=== PATIENT | male | born 1960 | race Caucasian/White ===

== ENCOUNTER → 2018-03-18 09:26 | Outpatient (CLI) | payer BC, SELFPAY ==
[2018-03-18 12:00] LABS: Basophil# 0.01 X10^3/uL; Basophil% 0.2 % (0-1); Eosinophil# 0.04 X10^3/uL; Eosinophils% 0.7 % (0-5); Hematocrit 42.8 % (40-54); Hemoglobin 14.6 g/dl (13.0-16.5); Lymphocyte % 18.1 % (19-41); Mean Corp Hgb Conc 34.1 g/gl (32-36); Mean Corpuscular Hgb 30.2 pg (27.0-32.0); Mean Corpuscular Volume 88.4 fL (80-94); Monocyte# 0.45 X10^3/uL; Monocyte% 8.2 % (0-10); Neutrophil % 72.6 % (47-70); Platelet Count 476 K/mm3 (150-450); RBC Distribution Width CV 12.8 % (11.6-14.6); RBC Distribution Width SD 41.3 fl (35.1-43.9); Red Blood Count 4.84 M/mm3 (4.6-6.2); White Blood Count 5.5 K/mm3 (4.4-11.0)
[2018-03-18 12:09] LABS: POSITIVE COUNT NO; POSITIVE DIFFERENTIAL NO; POSITIVE MORPHOLOGY NO
[2018-03-18 12:15] LABS: ALB/GLOB Ratio 0.8 RATIO (0.9-2.4); AST(SGOT) 14 U/L (15-37); Alanine Aminotransfer ALT/SGPT 26 U/L (16-61); Albumin, Serum 3.6 g/dL (3.2-5.0); Alkaline Phosphatase 74 U/L (45-117); Anion Gap 11 (5-15); BUN 19 mg/dL (7-18); BUN/Creat Ratio 17.1 RATIO (10-20); Chloride 104 mmol/L (98-107); Creatinine, Serum 1.11 mg/dL (0.70-1.30); EST Glomerular Filtration Rate 73 mL/min (>60); Est Glom Filt Rate - Afr Amer 88 mL/min (>60); Globulin 4.3 g/dL (2.2-4.2); Glucose 103 mg/dL (74-106); Potassium 3.7 mmol/L (3.5-5.1); Protein, Total 7.9 g/dL (6.4-8.2); Sodium Level 140 mmol/L (136-145)
[2018-03-18 12:55] LABS: HIV - WCH Non-Reactive (Nonreactive)
[2018-03-19 07:08] LABS: HEPATITIS B SURFACE AG Negative (Negative)
[2018-03-19 10:56] LABS: Hep B Surface Antibodies Non Reactive (.); Hep C Antibodies <0.1 s/co ratio (0.0-0.9); Hepatitis B Core Ab Total Negative (Negative)
== END ==
PROVIDERS: Family Provider Family Medicine; PCP Family Medicine; Referring Provider Physician Assistant; Visit Provider Physician Assistant
DX: L40.0 Psoriasis vulgaris (principal); L81.4 Other melanin hyperpigmentation; D22.5 Melanocytic nevi of trunk; L81.8 Other specified disorders of pigmentation; L72.0 Epidermal cyst; L71.8 Other rosacea; Z79.899 Other long term (current) drug therapy; Z71.89 Other specified counseling
CPT/HCPCS: 36415; 80053; 85025; 86703; 86704; 86706; 86803; 87340

== ENCOUNTER → 2019-03-13 09:29 | Outpatient (CLI) | payer BC, SELFPAY ==
[2014-11-29 20:31] VITALS: BMI 25.5
[2019-03-13 12:46] LABS: Absolute Lymphocyte Count 1.55 X10^3/uL (0.83-4.51); Absolute Neutrophil Count 4.6 X10^3/uL (2.0-7.7); Basophil# 0.06 X10^3/uL; Basophil% 0.9 % (0-1); Eosinophil# 0.08 X10^3/uL; Eosinophils% 1.1 % (0-5); Hematocrit 44.2 % (40-54); Hemoglobin 14.6 g/dL (13.0-16.5); Lymphocyte # 1.55 X10^3/ul (4.0); Lymphocyte % 22.2 % (19-41); Mean Corpuscular Volume 90.8 fL (80-94); Mean Platelet Vol. 9.5 fl (6.2-12.0); NRBC Flagged by Analyzer 0 % (0-5); Neutrophil # 4.55 X10^3/uL (2.7-7.7); Neutrophil % 65.2 % (47-70); Platelet Count 436 K/mm3 (150-450); RBC Distribution Width CV 12.2 % (11.6-14.6); RBC Distribution Width SD 40.7 fl (35.1-43.9); Red Blood Count 4.87 M/mm3 (4.6-6.2)
[2019-03-13 13:18] LABS: AST(SGOT) 16 U/L (15-37); Alanine Aminotransfer ALT/SGPT 25 U/L (16-61); Albumin, Serum 3.5 g/dL (3.2-5.0); Alkaline Phosphatase 84 U/L (45-117); Anion Gap 7 (5-15); BUN 12 mg/dL (7-18); BUN/Creat Ratio 12.6 RATIO (10-20); Bilirubin, Direct 0.11 mg/dL (0.00-0.30); Calcium,Total 8.8 mg/dL (8.5-10.1); Chloride 103 mmol/L (98-107); Cholesterol 188 mg/dL (200); Creatinine, Serum 0.95 mg/dL (0.70-1.30); EST Glomerular Filtration Rate 86 mL/min (>60); Est Glom Filt Rate - Afr Amer 105 mL/min (>60); Globulin 4.7 g/dL (2.2-4.2); Glucose 133 mg/dL (74-106); High Density Lipoprotein 50 mg/dL; Potassium 3.7 mmol/L (3.5-5.1); Protein, Total 8.2 g/dL (6.4-8.2); Sodium Level 138 mmol/L (136-145); Triglycerides 216 mg/dL; Very Low Density Lipoprotein 43 mg/dL (5-40)
[2019-03-13 14:06] LABS: Hepatitis B Surface Antibody Non-Reactive; Hepatitis B Surface Antigen Non-Reactive (Nonreactive); Hepatitis C Antibody Non-Reactive (Nonreactive)
[2019-03-16 03:08] LABS: QNTFERON TB Mitogen Value > 10.00 IU/mL (.); QNTFERON TB Nil Value 0.01 IU/mL (.); QNTFERON TB1+ Ag Value 0.03 IU/mL (.); QNTFERON TB2+ Ag Value 0.02 IU/mL (.)
[2019-03-17 10:37] LABS: Hepatitis B Core AB IgM Negative (Negative); QNTIFERON TB Positive Criteria Negative (Negative)
== END ==
PROVIDERS: Family Provider Family Medicine; PCP Family Medicine; Referring Provider Physician Assistant; Visit Provider Physician Assistant
DX: L40.0 Psoriasis vulgaris (principal); Z79.899 Other long term (current) drug therapy
CPT/HCPCS: 36415; 80048; 80061; 80076; 85025; 86480; 86705; 86706; 86803; 87340

== ENCOUNTER 2019-07-02 02:02 | Emergency (ER) | payer BC, SELFPAY ==
[2019-07-02 02:03] VITALS: BP 165/100; PULSE 88; RESP 17; TEMP 36.3; O2SAT 99; BMI 26.1
--- NOTE | 2019-07-02 02:16 | ED.VIS.GEN ---
History of Present Illness Chief Complaint: Dental Informant: Patient Narrative: Dated he is having left upper facial pain. He stated that he had 2 teeth pulled premolars approximately 2 weeks ago from his dentist. He has an appointment to see his dentist tomorrow for follow-up. He developed pain yesterday. He describes a throbbing pain. He was not given antibiotics postop. He is noticed no drainage from this area. He was not having pain up until yesterday. No injury to this area. Current severity is moderate. He is using Tylenol and ibuprofen. Minimal relief. Current severity is moderate. Worse by eating solids in this area. Past Medical History - Allergies and Home Meds Allergies/Adverse Reactions: Allergies prednisone Adverse Reaction (Verified 07/02/19 02:10) Chest tightness Primary Care Physician: John Jones MD [Primary Care Provider] - Prior records reviewed: Yes Past Medical History: - - Reviewed Surgical History: noncontributory Lives: With Family Smoking Status: Never smoker Alcohol: None Drugs: None Review of Systems General: Denies: Chills, Fever, Sweats Eyes: Denies: Visual changes - bilaterally, Diplopia ENT: Reports: - - See HPI. Denies: Rhinorrhea, Sore throat Cardiovascular: Denies: Chest pain, Palpitations Respiratory: Denies: Dyspnea, Cough, Dyspnea on exertion Gastrointestinal: Denies: Abdominal pain, Nausea, Vomiting, Diarrhea, Melena, Hematochezia Genitourinary: Denies: Dysuria, Hematuria, Frequency Musculoskeletal: Denies: Back pain, Extremity Pain Skin: Denies: Rash, Wounds Neurological: Denies: Headache, Weakness, Numbness Physical Exam Vital Signs/Narrative: Vital Signs Temp Pulse Resp BP Pulse Ox 07/02/19 02:03 97.4 F L 88 17 165/100 H 99 General: Well nourished, Well developed, No Acute Distress Head: Normocephalic, Atraumatic Eyes: Perrl, EOMI ENT: Moist mucous membranes, No rhinorrhea, - - Dental exam shows 2 premolars that were removed on the left side. The areas appear normal. There is no drainage. The gums appear normal. There is no dry socket. No significant tenderness to these areas. The rest of his dental exam shows chronic decay Neck: Supple, Nontender Cardiovascular: Regular rate, Regular rhythm, No murmurs Respiratory: No distress, CTA bilaterally, Chest nontender Abdomen: Soft, Nontender, Nondistended, Normal bowel sounds Back: Nontender, Normal Inspection Extremities: Nontender, No edema Skin: Normal color, No rash Neurological: Alert, Oriented x3, Cranial nerves II-XII grossly intact, Normal Strength, Normal Sensation Psychological: Normal affect, Normal Mood Diagnostic/Tx/Re-eval - Medical Decision Making At this time the patient may have a infection in the pocket. He will be given Augmentin. He was given 1 oxycodone here and will continue NSAIDs at home. He has a follow-up with his dentist tomorrow. I do not feel he needs a CT of his face. He is nontoxic. ED Disposition - Plan for ED Patient: Disposition: Home or Assisted Living Diagnosis: Postoperative pain Instructions: Dental Pain Prescriptions: Amox/Clavulanate Tablet [Augmentin Tablet] 875 mg PO Q12H #20 tab Prescription Printed Additional Instructions: Follow-up with your dentist tomorrow
[2019-07-02] MEDS: oxyCODONE 5 MG Tablet 10 MG PO (02:21)
[2019-07-02] MEDS: Amox/Clavulanate 875 MG Tablet PO (02:21)
== END 2019-07-02 02:57 | disposition home or self-care (01) ==
PROVIDERS: Emergency Provider Emergency Medicine; PCP Family Medicine
DX: K08.89 Other specified disorders of teeth and supporting structures (principal); G89.18 Other acute postprocedural pain
CPT/HCPCS: 99283

== ENCOUNTER 2019-07-31 15:50 | Inpatient (IN) | payer BC, SELFPAY ==
[2019-07-31] VITALS (16 sets, daily range): BP systolic 119–168; BP diastolic 61–115; PULSE 111–140; RESP 16–29; TEMP 36.4–39.6; O2SAT 91–99; BMI 26.4; BMI 24.7; BMI 24.8
--- NOTE | 2019-07-31 16:02 | EKG12_ITS ---
Test Reason : SOB Blood Pressure : / mmHG Vent. Rate : 130 BPM Atrial Rate : 130 BPM P-R Int : 140 ms QRS Dur : 090 ms QT Int : 294 ms P-R-T Axes : 024 028 046 degrees QTc Int : 432 ms Sinus tachycardia Otherwise normal ECG Confirmed by TONYA KRUEGER, LIT ([id number]), editor magazine PHILL TRUJILLO ([id number]) on 08/01/2019 1:10:57 PM Referred By: JOLENE Confirmed By:ALLIE CASTANEDA MD
--- NOTE | 2019-07-31 16:03 | ED.DCSUM_ITS ---
History of Present Illness Chief Complaint: Shortness of Breath Informant: Patient Onset: Days Context: Gradual Onset Current Severity: Moderate Maximum Severity: Moderate Narrative: Patient presents with shortness of breath, sore throat, mild cough. He states symptoms started 2 days ago primarily with sore throat. It is now moved into his chest. He does report some wheezing and mild cough. He feels it there is something stuck in his chest but is not been able to cough up any sputum. He has not noted fever. He denies history of lung problems. - Past Medical History (1) Psoriasis Status: Chronic Past Medical History - Allergies and Home Meds Allergies/Adverse Reactions: Allergies prednisone Adverse Reaction (Verified 07/31/19 15:52) Chest tightness Primary Care Physician: John Jones MD [Primary Care Provider] - Prior records reviewed: Yes Surgical History: noncontributory Lives: Spouse/ Significant Other Smoking Status: Former smoker Review of Systems General: Denies: Chills, Fever Eyes: Denies: Visual changes - bilaterally ENT: Reports: Sore throat. Denies: Bilateral ear pain Cardiovascular: Reports: Chest pain Respiratory: Reports: Dyspnea, Cough. Denies: Sputum Gastrointestinal: Denies: Abdominal pain, Nausea, Vomiting, Diarrhea Genitourinary: Denies: Dysuria Musculoskeletal: Denies: Swelling, Extremity Pain Skin: Denies: Rash Neurological: Denies: Headache Allergy: Denies: Uticaria Physical Exam Vital Signs/Narrative: Vital Signs Temp Pulse Resp BP Pulse Ox 07/31/19 15:50 97.5 F L 138 H 24 H 168/94 H 95 Inital Vital Signs reviewed: Yes General: Well nourished, Well developed Head: Normocephalic ENT: Moist mucous membranes, - - Mild posterior pharyngeal drainage. Uvula midline. Tolerating secretions well and has a strong voice. Neck: Supple Cardiovascular: Tachycardia Respiratory: No distress, - - Lung sounds diminished at the bilateral bases. Abdomen: Soft, Nontender Extremities: Nontender, No edema Skin: Normal color, No rash Neurological: Alert, Oriented x3 Psychological: Normal affect Diagnostic/Tx/Re-eval Impressions Chest X-Ray 07/31/19 16:10 IMPRESSION: No acute cardiopulmonary findings Electronically Signed: Kd Baca, at 16:45 EDT Tel , Service support , 07/31/19 16:10 Chest 1 View (Portable) [RAD] Stat 07/31/19 16:36 Mucosa - Nasopharyngeal Influenza Types A,B Direct FA ([facility]) - Final Laboratory Results 07/31/19 07/31/19 07/31/19 16:18 16:18 16:18 WBC 10.6 RBC 4.92 Hgb 14.9 Hct 44.5 MCV 90.4 MCH 30.3 MCHC 33.5 RDW Std Deviation 42.1 RDW Coeff of Jose 12.7 Plt Count 298 MPV 8.5 Immature Gran % (Auto) 0.300 Neut % (Auto) 88.6 H Lymph % (Auto) 6.9 L [place] % (Auto) 3.9 Eos % (Auto) 0.1 Baso % (Auto) 0.2 Absolute Neuts (auto) 9.4 H Absolute Lymphs (auto) 0.73 L Nucleated RBC % 0 D-Dimer Quant (PE/DVT) 0.31 Sodium 138 Potassium 3.6 Chloride 102 Carbon Dioxide 27.0 Anion Gap 9 BUN 13 Creatinine 1.02 Estim Creat Clear Calc 90.30 Est GFR (MDRD) Af Amer 97 Est GFR (MDRD) Non-Af 80 BUN/Creatinine Ratio 12.7 Glucose 113 H Lactic Acid Calcium 8.9 Troponin I < 0.015 07/31/19 16:18 WBC RBC Hgb Hct MCV MCH MCHC RDW Std Deviation RDW Coeff of Jose Plt Count MPV Immature Gran % (Auto) Neut % (Auto) Lymph % (Auto) [place] % (Auto) Eos % (Auto) Baso % (Auto) Absolute Neuts (auto) Absolute Lymphs (auto) Nucleated RBC % D-Dimer Quant (PE/DVT) Sodium Potassium Chloride Carbon Dioxide Anion Gap BUN Creatinine Estim Creat Clear Calc Est GFR (MDRD) Af Amer Est GFR (MDRD) Non-Af BUN/Creatinine Ratio Glucose Lactic Acid 2.1 H* Calcium Troponin I - EKG Initial EKG Interpretation: Sinus Tachycardia - Sinus tach at 130. No acute ischemia. - Medical Decision Making Patient was given a DuoNeb treatment on arrival. Patient's heart rate improved from 138 only to 128. On repeat evaluation he felt like he was breathing better. CBC and chemistry studies are unremarkable. Troponin and d-dimer are both negative. Patient did not feel that he got some improvement in his breathing with DuoNeb treatment. He was ordered additional albuterol treatments, however complained of headache and asked for some Tylenol before getting the breathing treatments. When the nurse went back to take Tylenol as well as a dose of doxycycline to him, she rechecked his temperature and was reading 103.3 TA. Blood cultures and lactic acid were obtained at that time. Lactic acid has returned to 2.1. Patient is already had a liter of IV fluid but remains tachycardic with heart rate in the 140s. Patient's face is red and flushed. Repeat TA temperature is still elevated around 102, however oral temperature is not elevated when taken at the same time. Patient is on immunosuppression secondary to his psoriasis. I still have concern with the patient being persistently tachycardic. I recommended admission. Blood cultures should have a prelim answer tomorrow. Respiratory viral panel was also sent. ED Disposition - Plan for ED Patient: Disposition: Acute Care Hospital [facility] Diagnosis: Shortness of breath, Tachycardia Referrals: John Jones MD [Primary Care Provider] -
--- NOTE | 2019-07-31 16:10 | RAD_ITS ---
STUDY: X-RAY CHEST REASON FOR EXAM: Male, 58 years old. LUNG PAIN, SOB, SORE THROAT, COUGH SINCE ROMERO. UNABLE TO TAKE DEEP BREATH TECHNIQUE: Single frontal view of the chest. COMPARISON: 03/21/16 FINDINGS: Cardiac silhouette unremarkable. Pulmonary vascularity unremarkable. Aorta unremarkable. No focal airspace opacities. No pleural effusions. Upper abdomen unremarkable. Osseous structures intact. No pneumothorax. RAD/Chest 1 View (Portable) IMPRESSION: No acute cardiopulmonary findings Electronically Signed: Kd Baca, at 16:45 EDT Tel , Service support ,
[2019-07-31] MEDS: Ipratropium/Albuterol Sulfate 3 ML AMPUL.NEB INHALATION (16:24)
[2019-07-31] MEDS: 0.9% Normal Saline 1,000 ML 150 ML IV (16:25)
[2019-07-31 16:29] LABS: Absolute Lymphocyte Count 0.73 X10^3/uL (0.83-4.51); Absolute Neutrophil Count 9.4 X10^3/uL (2.0-7.7); Basophil# 0.02 X10^3/uL; Basophil% 0.2 % (0-1); Eosinophil# 0.01 X10^3/uL; Eosinophils% 0.1 % (0-5); Hematocrit 44.5 % (40-54); Hemoglobin 14.9 g/dL (13.0-16.5); Lymphocyte # 0.73 X10^3/ul (4.0); Lymphocyte % 6.9 % (19-41); Mean Corp Hgb Conc 33.5 g/dL (32-36); Mean Corpuscular Hgb 30.3 pg (27.0-32.0); Mean Corpuscular Volume 90.4 fL (80-94); Mean Platelet Vol. 8.5 fl (6.2-12.0); Monocyte# 0.41 X10^3/uL; Monocyte% 3.9 % (0-10); NRBC Flagged by Analyzer 0 % (0-5); Neutrophil # 9.44 X10^3/uL (2.7-7.7); Neutrophil % 88.6 % (47-70); Platelet Count 298 K/mm3 (150-450); RBC Distribution Width CV 12.7 % (11.6-14.6); RBC Distribution Width SD 42.1 fl (35.1-43.9); Red Blood Count 4.92 M/mm3 (4.6-6.2); White Blood Count 10.6 K/mm3 (4.4-11.0)
[2019-07-31 16:41] LABS: D-Dimer Quantitative (DVT/PE) 0.31 FEU/ug/m (0.27-0.49)
[2019-07-31 16:49] LABS: Anion Gap 9 (5-15); BUN 13 mg/dL (7-18); BUN/Creat Ratio 12.7 RATIO (10-20); Calcium,Total 8.9 mg/dL (8.5-10.1); Chloride 102 mmol/L (98-107); Creatinine, Serum 1.02 mg/dL (0.70-1.30); EST Glomerular Filtration Rate 80 mL/min (>60); Est Glom Filt Rate - Afr Amer 97 mL/min (>60); Glucose 113 mg/dL (74-106); Potassium 3.6 mmol/L (3.5-5.1); Sodium Level 138 mmol/L (136-145)
[2019-07-31] MEDS: Doxycycline 100 MG CAPSULE PO (18:12)
[2019-07-31] MEDS: Acetaminophen 500 MG Tablet 1000 MG PO ×2 (18:12→20:12)
[2019-07-31] MEDS: Albuterol 2.5 MG/3 ML VIAL.NEB. INHALATION (18:32)
[2019-07-31 19:46] LABS: Lactic Acid 2.1 mmol/L (0.4-1.9)
--- NOTE | 2019-07-31 19:47 | PCM.HP.STD ---
History of Present Illness Date of Admission: 07/31/19 Chief Complaint: Dyspnea, cough, fatigue, malaise Admission Diagnoses: Acute Severe Sepsis Acute Viral Syndrome suspected, unclear type Former Tobacco use Psoriatic Arthritis on immunosuppressive therapy HTN GERD The patient is a 58 y/o M w/ PMHx: Former Tobacco use, HTN, GERD, Psoriatic Arthritis on immunosuppressive therapy who presents to the [facility] ED on 07/31/19 with history of sore throat with chest congestion and wheezing in addition to mild cough, fatigue, malaise and dyspnea, worse with exertion starting this past Sunday, not improving and progressively worsening prompting eventual ED presentation with significant fever noted upon ED presentation. In the ED patient ill-appearing and diaphoretic. Patient does note that he was recently at a [employer] which is where he works on 07/20/2019 with nearly [phone] people present at that time. He denies any other recent travel outside of the community. Work-up in the ED included T 103.3, heart rate 130, BP 142/94, respiratory rate 20, 95% on room air, CBC with WC 10.6, hemoglobin 14.9, platelet 298 with left shift, d-dimer 0.31, BMP with glucose 113, lactic acid 2.1, troponin less than 0.015, rapid influenza negative, blood culture x2 pending per ED, respiratory viral panel pending per ED, chest x-ray with no acute cardiopulmonary findings. In the ED patient administered Tylenol, normal saline, albuterol and DuoNeb therapies as well as oral doxycycline x1. Given patient immunosuppressed status, acute presentation and recent participation in a large [employer] discussed case with infectious disease who agreed that if respiratory viral panel is negative would plan Kovic 19 testing. Discussed this patient with infection control as well as ED staff. Patient's is also present and discussed with the ED staff that she needed to be informed to wear a mask and once patient transitions to the ICU she will be requested to transition to home for self quarantine pending respiratory viral panel. Patient will be updated if respiratory viral panel is positive or negative and what to do following. Past Medical History Past Medical History (Chronic Problems): Chronic Problems Psoriasis (Chronic) Allergies prednisone Adverse Reaction (Verified 07/31/19 15:52) Chest tightness Home Medications: Ambulatory Orders Medication Instructions Recorded Garlic 500 mg PO DAILY 07/02/19 Guselkumab [Tremfya] 100 mg SQ UD 07/02/19 Multivitamin with Minerals 1 ea PO DAILY 07/02/19 [Multiple Vitamin] [place]-3 Fatty Acids [[place]-3] 1,000 mg PO DAILY 07/02/19 Omeprazole 20 mg PO DAILY 07/31/19 Surgical History: - - Cornelia teeth extraction, bilateral carpal tunnel surgery. Psychiatric History: No pertinent psych hx Lives: Spouse/ Significant Other Smoking Status: Former smoker - Patient quit cigarette tobacco use when he was in his 30s and prior to this had smoked approximately 1 pack/day since he was a teenager. Tobacco Use: Non-smoker, Cigarettes Alcohol: Occasional - She notes beer on the weekends occasionally. Drugs: None - *Family History Maternal History Items: Diabetes Paternal History Items: - - Patient denies any market paternal family history including heart disease, diabetes or cancer. Review of Systems Constitutional: Reports: Fever, Malaise, Weakness, Fatigue. Denies: Anorexia, Chills, Weight Change HEENT: Reports: Head Aches, Nasal Congestion, Sinus Congestion, Sore Throat. Denies: Sinus Drainage Cardiovascular: Denies: Chest Pain, Palpitations Respiratory: Reports: Cough, Shortness of Breath, Shortness of breath at rest, Shortness of breath upon exertion, Sputum production, Wheezing Gastrointestinal: Denies: Abdominal Pain, Nausea, Vomiting Genitourinary: Denies: Dysuria Musculoskeletal: Denies: Joint Pain, Joint Tenderness Skin: Denies: Rash, Wounds Neurological: Denies: Numbness, Tingling, Focal weakness Psychiatric: Denies: Anxiety, Depression, Homicidal Ideations, Suicidal Ideations Hematologic/ Lymphatic: Denies: Easy Bruising, Easy Bleeding VTE Information - Inpt Only VTE Present on Admission: No VTE Mechan Device Prophylaxis: SCD's VTE Pharm Prophylaxis ordered?: Yes Subjective: Patient seated upright in the ED bed, fatigued and ill-appearing, flushed face, diaphoretic. Objective: Physical Examination: General: awake, alert, oriented x 3 and cooperative, seated upright in the ED bed, ill and fatigued appearing, flushed face, diaphoretic. Skin: Flushed color, turgor, no icterus, cyanosis. HEENT: AT/NC, EOMI, PERRLA, dry MM, flushed face, diaphoretic, no carotid bruits or JVD noted. Lungs: Diminished breath sounds bilaterally, greater bases, moderate effort, questionable rales left base, no obvious rhonchi, occasional end expiratory wheeze noted. Heart: Tachycardic with regular rhythm; no gallop, rub audible. Abdomen: soft, NTTP, ND, normal BS, no HSM. Extremities: no cyanosis, clubbing, or edema. Neurological: patient awake, alert, oriented x 3; cognitive function appears baseline intact; pupils equally reactive to light and accomodation; cranial nerves II-XII grossly normal, moving all 4 extremities, no focal deficits, strength moderately to severely globally Maria Antonia secondary to acute presentation. Psychiatric: affect appears fatigued, ill-appearing, no acute evidence of depressive or anxiety feelings. - Physical Exam Vitals/I&O's: Vital Signs Temp Pulse Resp BP Pulse Ox 103.3 F H 130 H 24 H 150/91 H 99 07/31/19 18:47 07/31/19 18:47 07/31/19 18:47 07/31/19 18:47 07/31/19 18:47 Oxygen Delivery Method Room Air Weight: 200 lb Body Mass Index (BMI) 26.4 Microbiology Past 72 Hours 07/31/19 16:36 Mucosa - Nasopharyngeal Influenza Types A,B Direct FA ([facility]) - Final Laboratory Results 07/31/19 16:18: WBC 10.6, RBC 4.92, Hgb 14.9, Hct 44.5, MCV 90.4, MCH 30.3, MCHC 33.5, RDW Std Deviation 42.1, RDW Coeff of Jose 12.7, Plt Count 298, MPV 8.5, Immature Gran % (Auto) 0.300, Neut % (Auto) 88.6 H, Lymph % (Auto) 6.9 L, [place] % (Auto) 3.9, Eos % (Auto) 0.1, Baso % (Auto) 0.2, Absolute Neuts (auto) 9.4 H, Absolute Lymphs (auto) 0.73 L, Nucleated RBC % 0 07/31/19 16:18: D-Dimer Quant (PE/DVT) 0.31 07/31/19 16:18: Sodium 138, Potassium 3.6, Chloride 102, Carbon Dioxide 27.0, Anion Gap 9, BUN 13, Creatinine 1.02, Estim Creat Clear Calc 90.30, Est GFR (MDRD) Af Amer 97, Est GFR (MDRD) Non-Af 80, BUN/Creatinine Ratio 12.7, Glucose 113 H, Calcium 8.9, Troponin I < 0.015 07/31/19 16:18: Lactic Acid 2.1 H* Current Medications Sodium Chloride () 1,000 mls @ 150 mls/hr IV .[id number] [facility] Last Admin: 07/31/19 16:25 Dose: 150 mls/hr Documented by: Assessment/Plan The patient is a 58 y/o M w/ PMHx: Former Tobacco use, HTN, GERD, Psoriatic Arthritis on immunosuppressive therapy who presents to the [facility] ED on 07/31/19 with history of sore throat with chest congestion and wheezing in addition to mild cough, fatigue, malaise and dyspnea, worse with exertion starting this past Sunday, not improving and progressively worsening prompting eventual ED presentation with significant fever noted upon ED presentation. 1. Acute Severe Sepsis secondary to Suspected Acute Viral Syndrome: Work-up in the ED included T 103.3, heart rate 130, BP 142/94, respiratory rate 20, 95% on room air, CBC with WC 10.6, hemoglobin 14.9, platelet 298 with left shift, d-dimer 0.31, BMP with glucose 113, lactic acid 2.1, troponin less than 0.015, rapid influenza negative, blood culture x2 pending per ED, respiratory viral panel pending per ED, chest x-ray with no acute cardiopulmonary findings. Will admit to the ICU given severe sepsis presentation, maintain on [employer] room precautions if respiratory panel negative with planned COVID-19 testing given history reported and per discussion with ID, if + respiratory viral panel may transition to appropriate precautions that apply, maintain on oxygen with wean as tolerated to room air, continue ATC duonebs, PRN albuterol, IV methylprednisolone, HOB, IS parameters, pending sputum cultures and respiratory panel as noted, repeat CXR in AM following hydration overnight. ICU physician consulted, pending. 2. History of hypertension: Not on regimen, BP appropriate in the ED, continue to monitor and add oral regimen if appropriate, PRN IV hydralazine. 3. Psoriatic arthritis: We will hold patient Tremfya, complicates his acute presentation as immunosuppressed. 4. GERD: We will maintain on patient home PPI. 5. Former tobacco usage: We will encourage continued tobacco cessation. 6. DVT prophylaxis: SCDs, Lovenox. Inpatient E&M: 17623 Init Hosp L3
[2019-07-31] MEDS: 0.9% Normal Saline 1,000 ML 999 ML IV ×2 (20:06→23:27)
[2019-07-31 22:11] LABS: AST(SGOT) 28 U/L (15-37); Alanine Aminotransfer ALT/SGPT 31 U/L (16-61); Albumin, Serum 3.8 g/dL (3.2-5.0); Alkaline Phosphatase 72 U/L (45-117); Bilirubin, Direct 0.12 mg/dL (0.00-0.30); Globulin 4.3 g/dL (2.2-4.2); Protein, Total 8.1 g/dL (6.4-8.2)
[2019-07-31 22:26] LABS: Reflex Lactate? Y
[2019-07-31] MEDS: 0.9% Saline Lock 10 ML Syringe IV (22:26)
[2019-07-31 23:55] LABS: Lactic Acid 2.8 mmol/L (0.4-1.9)
[2019-08-01] VITALS (23 sets, daily range): BP systolic 122–152; BP diastolic 66–89; PULSE 81–112; RESP 14–22; TEMP 36.4–37.7; O2SAT 96–100
[2019-08-01] MEDS: Ipratropium/Albuterol Sulfate 3 ML AMPUL.NEB INHALATION ×4 (00:13→19:00)
[2019-08-01] MEDS: 0.9% Normal Saline 1,000 ML 999 ML IV (00:27)
[2019-08-01] MEDS: 0.9% Normal Saline 1,000 ML 150 ML IV ×2 (02:09→06:10)
[2019-08-01] MEDS: Acetaminophen 325 MG Tablet 650 MG PO (04:47)
[2019-08-01 04:50] LABS: ALB/GLOB Ratio 0.7 RATIO (0.9-2.4); AST(SGOT) 14 U/L (15-37); Alanine Aminotransfer ALT/SGPT 26 U/L (16-61); Alkaline Phosphatase 56 U/L (45-117); Anion Gap 7 (5-15); BUN 10 mg/dL (7-18); BUN/Creat Ratio 11.4 RATIO (10-20); Calcium,Total 7.9 mg/dL (8.5-10.1); Chloride 112 mmol/L (98-107); Creatinine, Serum 0.88 mg/dL (0.70-1.30); EST Glomerular Filtration Rate 95 mL/min (>60); Est Glom Filt Rate - Afr Amer 115 mL/min (>60); Estimated Creatinine Clearance 104.67 ml/min; Globulin 4.1 g/dL (2.2-4.2); Glucose 150 mg/dL (74-106); Potassium 3.7 mmol/L (3.5-5.1); Protein, Total 7.1 g/dL (6.4-8.2); Sodium Level 142 mmol/L (136-145)
[2019-08-01 04:52] LABS: Absolute Neutrophil Count 13.1 X10^3/uL (2.0-7.7); Basophil# 0.02 X10^3/uL; Basophil% 0.1 % (0-1); Eosinophil# 0.31 X10^3/uL; Eosinophils% 2.2 % (0-5); Hematocrit 38.1 % (40-54); Hemoglobin 13.1 g/dL (13.0-16.5); Lymphocyte % 3.5 % (19-41); Mean Corp Hgb Conc 34.4 g/dL (32-36); Mean Corpuscular Hgb 31.1 pg (27.0-32.0); Mean Corpuscular Volume 90.5 fL (80-94); Mean Platelet Vol. 8.8 fl (6.2-12.0); Monocyte# 0.36 X10^3/uL; Monocyte% 2.5 % (0-10); NRBC Flagged by Analyzer 0 % (0-5); Neutrophil # 13.06 X10^3/uL (2.7-7.7); Neutrophil % 91.5 % (47-70); POSITIVE DIFFERENTIAL YES; POSITIVE MORPHOLOGY YES; Platelet Count 256 K/mm3 (150-450); RBC Distribution Width CV 12.9 % (11.6-14.6); RBC Distribution Width SD 42.5 fl (35.1-43.9); Red Blood Count 4.21 M/mm3 (4.6-6.2); White Blood Count 14.3 K/mm3 (4.4-11.0)
[2019-08-01 04:54] LABS: Differential Indicated SCAN CRITERIA MET
--- NOTE | 2019-08-01 05:00 | RAD_ITS ---
STUDY: X-RAY CHEST REASON FOR EXAM: Male, 58 years old. DYSPNEA -- SEVERE SEPSIS, TECHNIQUE: PA and lateral views of the chest. COMPARISON: July 31, 2019 FINDINGS: There are monitoring devices. There is linear increased opacities in the left lower lung. There is no demonstrated pleural abnormality. Normal size heart. Normal mediastinum and ryan. Normal visualized pulmonary arteries. Normal visualized aortic arch and descending thoracic aorta. There are diffuse degenerative changes of the visualized thoracic spine. Normal visualized ribs, clavicles, and shoulders. There is no demonstrated abnormality of the visualized soft tissue structures of the upper abdomen. RAD/Chest PA and Lateral IMPRESSION: Left lower lung scarring or atelectasis. Electronically Signed: Chan Shepherd MD at 8:32 EDT , Service support ,
[2019-08-01] MEDS: 0.9% Saline Lock 10 ML Syringe IV (05:15)
[2019-08-01 05:20] LABS: Differential Comment SCANNED
--- NOTE | 2019-08-01 07:24 | PCM.CON.CC ---
Reason for Consult Date of Consultation: 08/01/19 Reason for Consultation: Severe sepsis History of Present Illness: The patient is a 58-year-old male, with a history as outlined below, who presented to the emergency department with complaints of shortness of breath, sore throat and cough. The patient is on chronic immunosuppressive therapy due to a history of psoriatic arthritis. The patient has not recently traveled anywhere outside of the community. At the beginning of the month, he did attend a local gun show, which was a public event. The patient has never been diagnosed with COPD or asthma in the past. He does not utilize any inhalers at his baseline. He does have a prior smoking history, but quit completely 25 years ago. On presentation to the emergency department, the patient was noted to be afebrile, tachycardic and tachypneic. Initial laboratory evaluation revealed a normal white blood cell count. D-dimer was within normal limits. Chemistry profile was unremarkable. Lactate was elevated to 2.1. Troponin was negative. Plain film chest x-ray revealed no acute cardiopulmonary process. Cultures were obtained and the patient was placed on antimicrobials. He was subsequently admitted to the medical intensive care unit for management of his severe sepsis. No overnight issues were identified by the nursing staff. The patient did spike a fever last evening to 103.3 ?F. His tachycardia and tachypnea have now resolved. He is maintaining appropriate oxygen saturations on room air. Past Medical History Past Medical History (Chronic Problems): Chronic Problems Psoriasis (Chronic) Allergies prednisone Adverse Reaction (Verified 07/31/19 15:52) Chest tightness Home Medications: Ambulatory Orders Medication Instructions Recorded Garlic 500 mg PO DAILY 07/02/19 Guselkumab [Tremfya] 100 mg SQ UD 07/02/19 Multivitamin with Minerals 1 tab PO DAILY 07/02/19 [Multiple Vitamin] [place]-3 Fatty Acids [[place]-3] 1,000 mg PO DAILY 07/02/19 Omeprazole 20 mg PO DAILY 07/31/19 Surgical History: - - [place] teeth extraction, bilateral carpal tunnel surgery. Psychiatric History: No pertinent psych hx Lives: Spouse/ Significant Other Smoking Status: Former smoker Tobacco Use: Non-smoker, Cigarettes Alcohol: Occasional - She notes beer on the weekends occasionally. Drugs: None - *Family History Maternal History Items: Diabetes Paternal History Items: - - Patient denies any market paternal family history including heart disease, diabetes or cancer. Review of Systems Constitutional: Reports: Chills, Fever, Fatigue Eyes: Denies: Blurred vision, Double vision HEENT: Reports: Sore Throat Cardiovascular: Denies: Chest Pain, Palpitations Respiratory: Reports: Cough, Shortness of Breath, Wheezing Gastrointestinal: Denies: Abdominal Pain, Nausea, Vomiting Genitourinary: Denies: Dysuria Musculoskeletal: Denies: Joint Pain, Joint Tenderness Skin: Denies: Rash, Wounds Neurological: Denies: Numbness, Tingling, Focal weakness Psychiatric: Denies: Anxiety, Depression, Homicidal Ideations, Suicidal Ideations Hematologic/ Lymphatic: Denies: Easy Bruising, Easy Bleeding Patient Problems: Active and Suspected Problems Shortness of breath (Acute) Tachycardia (Acute) Objective: The patient's most recent lab work, culture data and imaging studies have all been personally reviewed. Respiratory viral panel was positive for parainfluenza 1. Blood cultures are pending. - Physical Exam Vitals/I&O's: Vital Signs Temp Pulse Resp BP Pulse Ox 98 F 88 16 131/81 H 98 08/01/19 05:00 08/01/19 06:56 08/01/19 06:56 08/01/19 06:56 08/01/19 06:56 Oxygen Delivery Method Room Air Weight: 191 lb 12.835 oz Body Mass Index (BMI) 24.7 Intake and Output for Last 24 Hours 07/30/19 07/31/19 08/01/19 23:59 23:59 23:59 Intake Total 2700 / 2900 4200 / 4200 Balance 2700 / 2900 4200 / 4200 General: Alert, Cooperative, No apparent distress HEENT: Atraumatic, Normocephalic Oral: No Gingival or Mucosal Lesions/ Ulcerations Neck: Supple, No Nodes, Trachea Midline Lungs: No rhonchi, No wheeze, No rales, Diminished Cardiovascular: Regular rate, Regular Rhythm, Normal S1, Normal S2, No murmurs Abdomen: Bowel Sounds Present, Soft, Non Tender Extremities: No clubbing, No cyanosis, No edema Skin: No breakdown Musculoskeletal: No Tenderness to Palpation of Joints or Extremities, No Muscle Wasting Lymphatic: No Cervical, Supraclavicular, or Inguinal Adenopathy Neurological: Cranial nerves II-XII grossly intact, Neuro grossly intact Psych/Mental Status: Alert and oriented to time, place, person, mood and affect Labs (Last 48 Hours) 07/31/19 07/31/19 07/31/19 16:18 16:18 16:18 WBC 10.6 RBC 4.92 Hgb 14.9 Hct 44.5 MCV 90.4 MCH 30.3 MCHC 33.5 RDW Std Deviation 42.1 RDW Coeff of Jose 12.7 Plt Count 298 MPV 8.5 Immature Gran % (Auto) 0.300 Neut % (Auto) 88.6 H Lymph % (Auto) 6.9 L [place] % (Auto) 3.9 Eos % (Auto) 0.1 Baso % (Auto) 0.2 Absolute Neuts (auto) 9.4 H Absolute Lymphs (auto) 0.73 L Nucleated RBC % 0 Differential Comment D-Dimer Quant (PE/DVT) 0.31 Sodium 138 Potassium 3.6 Chloride 102 Carbon Dioxide 27.0 Anion Gap 9 BUN 13 Creatinine 1.02 Estim Creat Clear Calc 90.30 Est GFR (MDRD) Af Amer 97 Est GFR (MDRD) Non-Af 80 BUN/Creatinine Ratio 12.7 Glucose 113 H Lactic Acid Calcium 8.9 Total Bilirubin Direct Bilirubin AST ALT Alkaline Phosphatase Troponin I < 0.015 Total Protein Albumin Globulin Albumin/Globulin Ratio 07/31/19 07/31/19 07/31/19 16:18 16:18 22:25 WBC RBC Hgb Hct MCV MCH MCHC RDW Std Deviation RDW Coeff of Jose Plt Count MPV Immature Gran % (Auto) Neut % (Auto) Lymph % (Auto) [place] % (Auto) Eos % (Auto) Baso % (Auto) Absolute Neuts (auto) Absolute Lymphs (auto) Nucleated RBC % Differential Comment D-Dimer Quant (PE/DVT) Sodium Potassium Chloride Carbon Dioxide Anion Gap BUN Creatinine Estim Creat Clear Calc Est GFR (MDRD) Af Amer Est GFR (MDRD) Non-Af BUN/Creatinine Ratio Glucose Lactic Acid 2.1 H* 2.8 H* Calcium Total Bilirubin 0.40 Direct Bilirubin 0.12 AST 28 ALT 31 Alkaline Phosphatase 72 Troponin I Total Protein 8.1 Albumin 3.8 Globulin 4.3 H Albumin/Globulin Ratio 08/01/19 08/01/19 08/01/19 04:20 04:20 04:20 WBC 14.3 H RBC 4.21 L Hgb 13.1 Hct 38.1 L MCV 90.5 MCH 31.1 MCHC 34.4 RDW Std Deviation 42.5 RDW Coeff of Jose 12.9 Plt Count 256 MPV 8.8 Immature Gran % (Auto) 0.200 Neut % (Auto) 91.5 H Lymph % (Auto) 3.5 L Gal[place] % (Auto) 2.5 Eos % (Auto) 2.2 Baso % (Auto) 0.1 Absolute Neuts (auto) 13.1 H Absolute Lymphs (auto) 0.50 L Nucleated RBC % 0 Differential Comment SCANNED D-Dimer Quant (PE/DVT) Sodium 142 Potassium 3.7 Chloride 112 H Carbon Dioxide 23.0 Anion Gap 7 BUN 10 Creatinine 0.88 Estim Creat Clear Calc 104.67 Est GFR (MDRD) Af Amer 115 Est GFR (MDRD) Non-Af 95 BUN/Creatinine Ratio 11.4 Glucose 150 H Lactic Acid 2.0 Calcium 7.9 L Total Bilirubin 0.50 Direct Bilirubin AST 14 L ALT 26 Alkaline Phosphatase 56 Troponin I Total Protein 7.1 Albumin 3.0 L Globulin 4.1 Albumin/Globulin Ratio 0.7 L Microbiology 07/31/19 18:30 Mucosa - Nasopharyngeal Respiratory Panel (PCR) - Final Parainfluenza 1 07/31/19 16:36 Mucosa - Nasopharyngeal Influenza Types A,B Direct FA (SANDI) - Final Clinical Impression(s) from Imaging Studies Chest X-Ray 07/31/19 16:10 IMPRESSION: No acute cardiopulmonary findings Electronically Signed: Kd Baca, at 16:45 EDT Tel , Service support , Current Medications Acetaminophen (Tylenol) 650 mg PO Q6H PRN PRN PRN Reason: Pain Score 1-10/Temp > 100.7 F Last Admin: 08/01/19 04:47 Dose: 650 mg Documented by: Al Hydroxide/Mg Hydroxide (Mylanta Ii) 30 ml PO Q6H PRN PRN PRN Reason: Gastric Burning Albuterol Sulfate (Ventolin Aerosols) 2.5 mg INHALATION Q2H PRN PRN PRN Reason: SOB/Wheezing Albuterol/Ipratropium (Duoneb) 3 ml INHALATION Q4H.RT [facility] Last Admin: 08/01/19 03:44 Dose: Not Given Documented by: Enoxaparin Sodium (Lovenox) 40 mg SC DAILY [facility] Glucagon () 1 mg IM .X1 PRN PRN Reason: Hypoglycemia Guaifenesin (Robitussin) 10 ml PO Q4H PRN PRN PRN Reason: COUGH Sodium Chloride () 1,000 mls @ 150 mls/hr IV .[id number] [facility] Last Admin: 08/01/19 06:10 Dose: 150 mls/hr Documented by: Sodium Chloride () 250 mls @ 15 mls/hr IV .[id number] PRN PRN Reason: Saline Flush Sodium Chloride () 250 mls @ 15 mls/hr IV .[id number] PRN PRN Reason: Additional IVPB Infusion Dextrose (Dextrose 10%-Water) 250 mls @ 999 mls/hr IV .Q16M PRN; Protocol PRN Reason: HYPOGLYCEMIA Ibuprofen (Motrin) 400 mg PO Q4H PRN PRN PRN Reason: Pain Score 1-10/Temp > 100.7 F Magnesium Hydroxide (Milk Of Magnesia) 30 ml PO DAILY PRN PRN PRN Reason: Constipation Melatonin (Melatonin) 3 mg PO QHS PRN PRN PRN Reason: INSOMNIA Methylprednisolone (Solu-Medrol) 40 mg IV Q8 [facility] Last Admin: 08/01/19 05:15 Dose: 40 mg Documented by: Morphine Sulfate () 2 mg IV Q3H PRN PRN PRN Reason: Pain Score 6-10/10 Nitroglycerin (Nitrostat) 0.4 mg SUBLINGUAL Q5M PRN PRN Reason: CARDIAC/CHEST PAIN Ondansetron HCl (Zofran) 4 mg IV Q8H PRN PRN PRN Reason: NAUSEA/VOMITING Oxycodone HCl (Oxyir) 5 mg PO Q4H PRN PRN PRN Reason: Pain Score 4-5/10 Pantoprazole Sodium (Protonix) 20 mg PO DAILY [facility] Prochlorperazine Edisylate (Compazine Iv) 5 mg IV Q4H PRN PRN PRN Reason: Breakthrough Nausea/Vomiting Psyllium Hydrophilic Mucilloid (Metamucil) 1 packet PO DAILY PRN PRN PRN Reason: Constipation Senna/Docusate Sodium (Senokot-S, Evy-Colace) 2 tablet PO BID PRN PRN PRN Reason: Constipation Sodium Chloride () 10 - 40 ml IV UD PRN PRN Reason: SALINE FLUSH Last Admin: 08/01/19 05:15 Dose: 20 ml Documented by: Throat Lozenges (Cepacol Sore Throat Lozenge) 1 lozenge MUCOUS MEM Q2H PRN PRN PRN Reason: SORE THROAT Assessment/Plan Active and Suspected Problems Shortness of breath (Acute) Tachycardia (Acute) RECOMMENDATIONS: 1. Continue current supportive measures with gentle IV fluid hydration, bronchodilators and steroids. 2. IV steroids can be transitioned to prednisone 40 mg daily beginning this morning. 3. Continue appropriate prophylaxis. 4. No indication for Covid 19 testing given positive respiratory viral panel. 5. The patient is medically stable for transfer out of the intensive care unit. 6. Given the patient's lack of further ICU or pulmonary needs, will sign off. Please call with any additional questions. IMPRESSIONS: 1. Severe sepsis secondary to parainfluenza upper respiratory infection The patient appears to have a viral upper respiratory infection which led to the development of his symptoms. He is improving symptomatically with supportive care including gentle IV fluid hydration, bronchodilators and steroids, which will be continued without change. The patient will be transitioned over to prednisone beginning today. I would plan to continue bronchodilators for now. Encourage incentive spirometer use while in bed. Perform walking oximetry study prior to consideration for discharge home. 2. History of psoriatic arthritis on chronic immunosuppression/GERD/history of tobacco dependency now in remission Complicates care, management, recovery and prognosis. Tremfya can be resumed at discharge. Continue PPI therapy. This note was generated with [employer] dictation software. It may contain incorrect words, spelling, and punctuation that were not noted in checking the note before signing. Inpatient E&M: 96207 Init Hosp L3
[2019-08-01 08:24] LABS: Reflex Lactate? Y
--- NOTE | 2019-08-01 09:34 | CASEMGMT ---
RN CM Assessment Note Presentation: Severe Sepsis, Parainfluenza 1 (isolation). Intro role of CM and purpose of RN CM assessment to patient in room. Demographics, PCP and Pharmacy verified. Pt states he is feeling better. States he is independent, drives, does not use DME. la PCP: Specialists: Preferred Pharmacy: Insurance: Prescription Benefit: LNOK : Living Arrangements: Transportation: DME: HHC: Patient DC goals: DC PLAN: RN CM advised to contact cm for any concerns/needs that may arise.
--- NOTE | 2019-08-01 09:46 | CASEMGMT ---
RN CM Assessment Note Presentation: Severe Sepsis, Parainfluenza 1 (isolation). Intro role of CM and purpose of RN CM assessment to patient in room. Demographics, PCP and Pharmacy verified. Pt states he is feeling better. States he is independent, drives, does not use DME. DC Plan is home on discharge. Pt denies needs or concerns at this time. PCP: Dr. John Jones Specialists: Dermotology Preferred Pharmacy: [facility] Insurance: [employer] Prescription Benefit: yes LNOK : , Keli Brown Living Arrangements: Pt lives independently with . no care needs. Transportation: drives DME: none HHC/SNF: none Patient DC goals: home DC PLAN: home. No dc needs identified @ this time. RN CM advised to contact cm for any concerns/needs that may arise. Amanda KILLIANN RN ACM
[2019-08-01] MEDS: Enoxaparin 40 MG/0.4 ML Syringe SC (10:07)
[2019-08-01] MEDS: Pantoprazole Sodium 20 MG Tablet PO (10:07)
--- NOTE | 2019-08-01 13:04 | PN_ITS ---
Patient Problems: Active and Suspected Problems Shortness of breath (Acute) Tachycardia (Acute) Subjective: Doing well, no issues overnight Vitals/I&O's: Vital Signs Temp Pulse Resp BP Pulse Ox 98 F 96 16 131/81 H 100 08/01/19 05:00 08/01/19 07:44 08/01/19 07:44 08/01/19 06:56 08/01/19 07:44 Oxygen Delivery Method Room Air Weight: 191 lb 12.835 oz Body Mass Index (BMI) 24.7 Intake and Output for Last 24 Hours 07/30/19 07/31/19 08/01/19 23:59 23:59 23:59 Intake Total 2700 / 2900 4700 / 4700 Balance 2700 / 2900 4700 / 4700 General: Alert, Oriented x3, Cooperative, No apparent distress HEENT: Atraumatic, PERRLA, EOMI, Normocephalic Oral: Moist Mucosa Neck: Supple, No JVD Lungs: Clear to auscultation, Normal air movement, No rhonchi, No wheeze, No rales, Diminished Cardiovascular: Regular Rhythm, Normal S1, Normal S2, No murmurs, Tachycardic Abdomen: Soft, Non Tender, Non-Distended, No Hepato-splenomegaly Extremities: No edema, Capillary Refill Less than 3 Seconds Skin: No rashes, No breakdown Neurological: Neuro grossly intact, Sensory exam intact to light touch and pain Psych/Mental Status: Normal Affect, Appropriate Microbiology Past 72 Hours 07/31/19 18:30 Mucosa - Nasopharyngeal Respiratory Panel (PCR) - Final Parainfluenza 1 07/31/19 16:36 Mucosa - Nasopharyngeal Influenza Types A,B Direct FA (SANDI) - Final Laboratory Results 07/31/19 16:18: WBC 10.6, RBC 4.92, Hgb 14.9, Hct 44.5, MCV 90.4, MCH 30.3, MCHC 33.5, RDW Std Deviation 42.1, RDW Coeff of Jose 12.7, Plt Count 298, MPV 8.5, Immature Gran % (Auto) 0.300, Neut % (Auto) 88.6 H, Lymph % (Auto) 6.9 L, Snyder % (Auto) 3.9, Eos % (Auto) 0.1, Baso % (Auto) 0.2, Absolute Neuts (auto) 9.4 H, Absolute Lymphs (auto) 0.73 L, Nucleated RBC % 0 07/31/19 16:18: D-Dimer Quant (PE/DVT) 0.31 07/31/19 16:18: Sodium 138, Potassium 3.6, Chloride 102, Carbon Dioxide 27.0, Anion Gap 9, BUN 13, Creatinine 1.02, Estim Creat Clear Calc 90.30, Est GFR (MDRD) Af Amer 97, Est GFR (MDRD) Non-Af 80, BUN/Creatinine Ratio 12.7, Glucose 113 H, Calcium 8.9, Troponin I < 0.015 07/31/19 16:18: Lactic Acid 2.1 H* 07/31/19 16:18: Total Bilirubin 0.40, Direct Bilirubin 0.12, AST 28, ALT 31, Alkaline Phosphatase 72, Total Protein 8.1, Albumin 3.8, Globulin 4.3 H 07/31/19 22:25: Lactic Acid 2.8 H* 08/01/19 04:20: WBC 14.3 H, RBC 4.21 L, Hgb 13.1, Hct 38.1 L, MCV 90.5, MCH 31.1, MCHC 34.4, RDW Std Deviation 42.5, RDW Coeff of Jose 12.9, Plt Count 256, MPV 8.8, Immature Gran % (Auto) 0.200, Neut % (Auto) 91.5 H, Lymph % (Auto) 3.5 L, Snyder % (Auto) 2.5, Eos % (Auto) 2.2, Baso % (Auto) 0.1, Absolute Neuts (auto) 13.1 H, Absolute Lymphs (auto) 0.50 L, Nucleated RBC % 0, Differential Comment SCANNED 08/01/19 04:20: Sodium 142, Potassium 3.7, Chloride 112 H, Carbon Dioxide 23.0, Anion Gap 7, BUN 10, Creatinine 0.88, Estim Creat Clear Calc 104.67, Est GFR (MDRD) Af Amer 115, Est GFR (MDRD) Non-Af 95, BUN/Creatinine Ratio 11.4, Glucose 150 H, Calcium 7.9 L, Total Bilirubin 0.50, AST 14 L, ALT 26, Alkaline Phosphatase 56, Total Protein 7.1, Albumin 3.0 L, Globulin 4.1, Albumin/Globulin Ratio 0.7 L 08/01/19 04:20: Lactic Acid 2.0 Current Medications Acetaminophen (Tylenol) 650 mg PO Q6H PRN PRN PRN Reason: Pain Score 1-10/Temp > 100.7 F Last Admin: 08/01/19 04:47 Dose: 650 mg Documented by: Al Hydroxide/Mg Hydroxide (Mylanta Ii) 30 ml PO Q6H PRN PRN PRN Reason: Gastric Burning Albuterol Sulfate (Ventolin Aerosols) 2.5 mg INHALATION Q2H PRN PRN PRN Reason: SOB/Wheezing Albuterol/Ipratropium (Duoneb) 3 ml INHALATION Q4H.RT [facility] Last Admin: 08/01/19 11:32 Dose: 3 ml Documented by: Enoxaparin Sodium (Lovenox) 40 mg SC DAILY [facility] Last Admin: 08/01/19 10:07 Dose: 40 mg Documented by: Glucagon () 1 mg IM .X1 PRN PRN Reason: Hypoglycemia Guaifenesin (Robitussin) 10 ml PO Q4H PRN PRN PRN Reason: COUGH Sodium Chloride () 250 mls @ 15 mls/hr IV .[id number] PRN PRN Reason: Saline Flush Sodium Chloride () 250 mls @ 15 mls/hr IV .[id number] PRN PRN Reason: Additional IVPB Infusion Dextrose (Dextrose 10%-Water) 250 mls @ 999 mls/hr IV .Q16M PRN; Protocol PRN Reason: HYPOGLYCEMIA Ibuprofen (Motrin) 400 mg PO Q4H PRN PRN PRN Reason: Pain Score 1-10/Temp > 100.7 F Magnesium Hydroxide (Milk Of Magnesia) 30 ml PO DAILY PRN PRN PRN Reason: Constipation Nitroglycerin (Nitrostat) 0.4 mg SUBLINGUAL Q5M PRN PRN Reason: CARDIAC/CHEST PAIN Ondansetron HCl (Zofran) 4 mg IV Q8H PRN PRN PRN Reason: NAUSEA/VOMITING Pantoprazole Sodium (Protonix) 20 mg PO DAILY [facility] Last Admin: 08/01/19 10:07 Dose: 20 mg Documented by: Prednisone () 40 mg PO DAILY@0800 [facility] Prochlorperazine Edisylate (Compazine Iv) 5 mg IV Q4H PRN PRN PRN Reason: Breakthrough Nausea/Vomiting Psyllium Hydrophilic Mucilloid (Metamucil) 1 packet PO DAILY PRN PRN PRN Reason: Constipation Senna/Docusate Sodium (Senokot-S, Evy-Colace) 2 tablet PO BID PRN PRN PRN Reason: Constipation Sodium Chloride () 10 - 40 ml IV UD PRN PRN Reason: SALINE FLUSH Last Admin: 08/01/19 05:15 Dose: 20 ml Documented by: Throat Lozenges (Cepacol Sore Throat Lozenge) 1 lozenge MUCOUS MEM Q2H PRN PRN PRN Reason: SORE THROAT Medical Necessity - Tobacco Use Smoking Status: Former smoker Tobacco Use: Non-smoker, Cigarettes Assessment/Plan All Active Problems Shortness of breath (Acute) Tachycardia (Acute) 1. Severe sepsis secondary to parainfluenza virus -Continue with supportive care -Transition to MedSurg -Continue with inhalers and steroids -No need for covid19 testing 2. History of hypertension -Systolic blood pressures were in the 130s to 140s -We will continue to monitor 3. Psoriatic arthritis -Hold his Tremfya DVT: Lovenox Inpatient E&M: 61210 Subs Hosp L2
[2019-08-02] MEDS: Ipratropium/Albuterol Sulfate 3 ML AMPUL.NEB INHALATION ×3 (00:13→07:44)
[2019-08-02 03:03] VITALS: BP 149/88; PULSE 85; RESP 16; TEMP 36.4; O2SAT 95
[2019-08-02 03:12] VITALS: PULSE 76; RESP 18; O2SAT 93
[2019-08-02 07:44] VITALS: PULSE 70; RESP 16; O2SAT 96
--- NOTE | 2019-08-02 09:40 | DCINST_ITS ---
- Discharge Diagnoses Current Active Problems: Current Active and Chronic Problems Shortness of breath (Acute) Tachycardia (Acute) You will use the following diet at home:: Regular Your food should be the consistency of: Regular Your liquids should be the consistency of: Regular/Thin Discharge Activity: Return to Normal Activity Call your doctor if you observe: Fever of 101 or Higher, Shortness of breath, Dizziness, Fainting spells, Swelling in the ankles, Chest pain, Increased palpitations (irregular heartbeat) Allergies/Adverse Reactions: Allergies prednisone Adverse Reaction (Verified 07/31/19 15:52) Chest tightness Medications to take at Discharge Garlic 500 mg PO DAILY 07/02/19 Guselkumab [Tremfya] 100 mg SQ UD 07/02/19 Multivitamin with Minerals [Multiple Vitamin] 1 tab PO DAILY 07/02/19 Met[place]-3 Fatty Acids [Metter-3] 1,000 mg PO DAILY 07/02/19 Omeprazole 20 mg PO DAILY 07/31/19 predniSONE tablet 40 mg PO DAILY@0800 #14 tab 08/02/19 The following prescriptions were given: predniSONE tablet 40 mg PO DAILY@0800 #14 tab Transmission Status: Pending to [facility] Primary Care Physician: Jhon Jones MD [Primary Care Provider] - Please follow up with your Primary Care Physician in: 3-5 days Test Results: Test results from this visit will be discussed in further detail at your follow- up appointment, if applicable.
--- NOTE | 2019-08-02 09:42 | PCM.DC.SUM ---
Discharge Date and Diagnosis - Problem List Patient Problems: Active and Suspected Problems Shortness of breath (Acute) Tachycardia (Acute) Date of Admission: 07/31/19 Date of Discharge: 08/02/19 - Primary Discharge Diagnosis Active and Suspected Problems Shortness of breath (Acute) Tachycardia (Acute) - Secondary Discharge Diagnosis Chronic Problems Psoriasis (Chronic) Hospital Course and Treatment Imaging Results: CXR: IMPRESSION: No acute cardiopulmonary findings Consults: ICU Operations: None Procedures: None Summary of Care Provided: Per HPI: The patient is a 58 y/o M w/ PMHx: Former Tobacco use, HTN, GERD, Psoriatic Arthritis on immunosuppressive therapy who presents to the [facility] ED on 07/31/19 with history of sore throat with chest congestion and wheezing in addition to mild cough, fatigue, malaise and dyspnea, worse with exertion starting this past Sunday, not improving and progressively worsening prompting eventual ED presentation with significant fever noted upon ED presentation. In the ED patient ill-appearing and diaphoretic. Patient does note that he was recently at a [employer] which is where he works on 07/20/2019 with nearly [phone] people present at that time. He denies any other recent travel outside of the community. Work-up in the ED included T 103.3, heart rate 130, BP 142/94, respiratory rate 20, 95% on room air, CBC with WC 10.6, hemoglobin 14.9, platelet 298 with left shift, d-dimer 0.31, BMP with glucose 113, lactic acid 2.1, troponin less than 0.015, rapid influenza negative, blood culture x2 pending per ED, respiratory viral panel pending per ED, chest x-ray with no acute cardiopulmonary findings. In the ED patient administered Tylenol, normal saline, albuterol and DuoNeb therapies as well as oral doxycycline x1. Given patient immunosuppressed status, acute presentation and recent participation in a large [employer] discussed case with infectious disease who agreed that if respiratory viral panel is negative would plan Kovic 19 testing. Discussed this patient with infection control as well as ED staff. Patient's is also present and discussed with the ED staff that she needed to be informed to wear a mask and once patient transitions to the ICU she will be requested to transition to home for self quarantine pending respiratory viral panel. Patient will be updated if respiratory viral panel is positive or negative and what to do following. Hospital Course: 1. Severe sepsis secondary to [id number] male with history of psoriatic arthritis presents with sore throat, chest congestion, and wheezing as well as a cough. He also had a fever when he presented to the ER. He was initially transferred to the ICU and found to be positive for parainfluenza. Started on inhalers as well as prednisone. He was tachycardic yesterday however he is content with IV fluids and has been taking good p.o. intake and states that today he feels much better. He was continued on prednisone and states that he does not think the inhalers did much for his breathing. He does not have any further wheezing and he would like to go home today. I discussed discharge with him and he expressed understanding of the risks and benefits of going home, he will need to follow-up with his primary care doctor in 3 to 5 days and continue steroids for about 7 days. 2. His other medical diagnoses were evaluated and his home medications were continued where appropriate Patient Problems: Active and Suspected Problems Shortness of breath (Acute) Tachycardia (Acute) - Physical Exam Vitals/I&O's: Vital Signs Temp Pulse Resp BP Pulse Ox 97.6 F L 70 16 149/88 H 96 08/02/19 03:03 08/02/19 07:44 08/02/19 07:44 08/02/19 03:03 08/02/19 07:44 Oxygen Delivery Method Room Air Weight: 191 lb 12.835 oz Body Mass Index (BMI) 24.7 Intake and Output for Last 24 Hours 07/31/19 08/01/19 08/02/19 23:59 23:59 23:59 Intake Total 2700 / 2900 5860 / 6660 1000 / 1000 Balance 2700 / 2900 5860 / 6660 1000 / 1000 General: Alert, Oriented x3, Cooperative, No apparent distress HEENT: Atraumatic, PERRLA, EOMI, Normocephalic Oral: Moist Mucosa Neck: Supple, No JVD Lungs: Clear to auscultation, Normal air movement, No rhonchi, No wheeze, No rales, Diminished Cardiovascular: Regular Rate and Rhythm, Normal S1, Normal S2, No murmurs Abdomen: Soft, Non Tender, Non-Distended, No Hepato-splenomegaly Extremities: No edema, Capillary Refill Less than 3 Seconds Skin: No rashes, No breakdown Neurological: Neuro grossly intact, Sensory exam intact to light touch and pain Psych/Mental Status: Normal Affect, Appropriate Microbiology Past 72 Hours 07/31/19 18:30 Mucosa - Nasopharyngeal Respiratory Panel (PCR) - Final Parainfluenza 1 07/31/19 16:36 Mucosa - Nasopharyngeal Influenza Types A,B Direct FA (SANDI) - Final Current Medications Acetaminophen (Tylenol) 650 mg PO Q6H PRN PRN PRN Reason: Pain Score 1-10/Temp > 100.7 F Last Admin: 08/01/19 04:47 Dose: 650 mg Documented by: Al Hydroxide/Mg Hydroxide (Mylanta Ii) 30 ml PO Q6H PRN PRN PRN Reason: Gastric Burning Albuterol Sulfate (Ventolin Aerosols) 2.5 mg INHALATION Q2H PRN PRN PRN Reason: SOB/Wheezing Albuterol/Ipratropium (Duoneb) 3 ml INHALATION Q4H.RT [facility] Last Admin: 08/02/19 07:44 Dose: 3 ml Documented by: Enoxaparin Sodium (Lovenox) 40 mg SC DAILY [facility] Last Admin: 08/01/19 10:07 Dose: 40 mg Documented by: Glucagon () 1 mg IM .X1 PRN PRN Reason: Hypoglycemia Guaifenesin (Robitussin) 10 ml PO Q4H PRN PRN PRN Reason: COUGH Sodium Chloride () 250 mls @ 15 mls/hr IV .[id number] PRN PRN Reason: Saline Flush Sodium Chloride () 250 mls @ 15 mls/hr IV .[id number] PRN PRN Reason: Additional IVPB Infusion Dextrose (Dextrose 10%-Water) 250 mls @ 999 mls/hr IV .Q16M PRN; Protocol PRN Reason: HYPOGLYCEMIA Ibuprofen (Motrin) 400 mg PO Q4H PRN PRN PRN Reason: Pain Score 1-10/Temp > 100.7 F Magnesium Hydroxide (Milk Of Magnesia) 30 ml PO DAILY PRN PRN PRN Reason: Constipation Nitroglycerin (Nitrostat) 0.4 mg SUBLINGUAL Q5M PRN PRN Reason: CARDIAC/CHEST PAIN Ondansetron HCl (Zofran) 4 mg IV Q8H PRN PRN PRN Reason: NAUSEA/VOMITING Pantoprazole Sodium (Protonix) 20 mg PO DAILY [facility] Last Admin: 08/01/19 10:07 Dose: 20 mg Documented by: Prednisone () 40 mg PO DAILY@0800 [facility] Prochlorperazine Edisylate (Compazine Iv) 5 mg IV Q4H PRN PRN PRN Reason: Breakthrough Nausea/Vomiting Psyllium Hydrophilic Mucilloid (Metamucil) 1 packet PO DAILY PRN PRN PRN Reason: Constipation Senna/Docusate Sodium (Senokot-S, Evy-Colace) 2 tablet PO BID PRN PRN PRN Reason: Constipation Sodium Chloride () 10 - 40 ml IV UD PRN PRN Reason: SALINE FLUSH Last Admin: 08/01/19 05:15 Dose: 20 ml Documented by: Throat Lozenges (Cepacol Sore Throat Lozenge) 1 lozenge MUCOUS MEM Q2H PRN PRN PRN Reason: SORE THROAT Discharge Activity: Return to Normal Activity Call your doctor if you observe: Fever of 101 or Higher, Shortness of breath, Dizziness, Fainting spells, Swelling in the ankles, Chest pain, Increased palpitations (irregular heartbeat) Home Medications: Medications to take at Discharge Garlic 500 mg PO DAILY 07/02/19 Guselkumab [Tremfya] 100 mg SQ UD 07/02/19 Multivitamin with Minerals [Multiple Vitamin] 1 tab PO DAILY 07/02/19 [place]-3 Fatty Acids [[place]-3] 1,000 mg PO DAILY 07/02/19 Omeprazole 20 mg PO DAILY 07/31/19 predniSONE tablet 40 mg PO DAILY@0800 #14 tab 08/02/19 Following Prescrptions Were Given to Patient: predniSONE tablet 40 mg PO DAILY@0800 #14 tab Transmission Status: Pending to [facility] Primary Care Physician: John Jones MD [Primary Care Provider] - Please follow up with your Primary Care Physician in: 3-5 days Disposition: Home Minutes spent on discharge:: 35 Patient Condition:: Stable Medical Necessity - Tobacco Use Smoking Status: Former smoker Tobacco Use: Non-smoker, Cigarettes Meaningful Use Info Meaningful Use Diagnoses (Choose all that apply): None applicable Inpatient E&M: [id number] [facility]
[2019-08-02] MEDS: Pantoprazole Sodium 20 MG Tablet PO (10:02)
[2019-08-02] MEDS: predniSONE 20 MG Tablet 40 MG PO (10:02)
[2019-08-02 10:04] VITALS: BP 139/88; PULSE 81; RESP 18; TEMP 36.8; O2SAT 96
== END 2019-08-02 10:50 | disposition home or self-care (01) | DRG 872 ==
LOC: ED 19:49 → ICU 20:39 → MS3 08-01 15:26
PROVIDERS: Admitting Provider Family Medicine; Emergency Provider Emergency Medicine; PCP Family Medicine; Visit Provider Family Medicine
DX: A41.9 Sepsis, unspecified organism (principal); R65.20 Severe sepsis without septic shock; J06.9 Acute upper respiratory infection, unspecified; B34.8 Other viral infections of unspecified site; L40.50 Arthropathic psoriasis, unspecified; R06.02 Shortness of breath; R00.0 Tachycardia, unspecified; I10 Essential (primary) hypertension; K21.9 Gastro-esophageal reflux disease without esophagitis; Z79.899 Other long term (current) drug therapy; Z87.891 Personal history of nicotine dependence
CPT/HCPCS: 36415; 71045; 71046; 80048; 80053; 80076; 83605; 84484; 85025; 85379; 87040; 87633; 87804; 93005; 94640; 99251; 99283; J7030; A4216; G0463

== ENCOUNTER → 2019-12-29 09:05 | Outpatient (CLI) | payer BC, SELFPAY ==
[2019-07-31 21:23] VITALS: BMI 24.7
[2019-12-29 09:54] LABS: Absolute Lymphocyte Count 1.36 X10^3/uL (0.83-4.51); Absolute Neutrophil Count 3.3 X10^3/uL (2.0-7.7); Basophil# 0.04 X10^3/uL; Basophil% 0.7 % (0-1); Eosinophil# 0.06 X10^3/uL; Eosinophils% 1.1 % (0-5); Hematocrit 45.1 % (40-54); Lymphocyte # 1.36 X10^3/ul (4.0); Lymphocyte % 25.2 % (19-41); Mean Corp Hgb Conc 33.3 g/dL (32-36); Mean Corpuscular Hgb 29.7 pg (27.0-32.0); Mean Corpuscular Volume 89.3 fL (80-94); Monocyte# 0.63 X10^3/uL; Monocyte% 11.7 % (0-10); NRBC Flagged by Analyzer 0 % (0-5); Neutrophil # 3.29 X10^3/uL (2.7-7.7); Neutrophil % 60.9 % (47-70); Platelet Count 433 K/mm3 (150-450); RBC Distribution Width CV 12.6 % (11.6-14.6); RBC Distribution Width SD 41.7 fl (35.1-43.9); Red Blood Count 5.05 M/mm3 (4.6-6.2); White Blood Count 5.4 K/mm3 (4.4-11.0)
[2019-12-29 10:18] LABS: AST(SGOT) 17 U/L (15-37); Alanine Aminotransfer ALT/SGPT 24 U/L (16-61); Albumin, Serum 3.8 g/dL (3.2-5.0); Alkaline Phosphatase 65 U/L (45-117); Bilirubin, Direct 0.16 mg/dL (0.00-0.30); Globulin 4.3 g/dL (2.2-4.2); Protein, Total 8.1 g/dL (6.4-8.2)
[2020-01-01 03:06] LABS: QNTFERON TB Mitogen Value > 10.00 IU/mL (.); QNTFERON TB Nil Value 0.02 IU/mL (.); QNTFERON TB1+ Ag Value 0.02 IU/mL (.); QNTFERON TB2+ Ag Value 0.02 IU/mL (.)
[2020-01-01 07:35] LABS: QNTIFERON TB Positive Criteria Negative (Negative)
== END ==
PROVIDERS: PCP Family Medicine; Referring Provider Dermatology; Visit Provider Dermatology
DX: Z79.899 Other long term (current) drug therapy (principal); L40.0 Psoriasis vulgaris; L40.3 Pustulosis palmaris et plantaris
CPT/HCPCS: 36415; 80076; 85025; 86480

== ENCOUNTER 2020-11-07 17:29 | Emergency (ER) | payer OTHER, SELFPAY ==
[2019-07-31 21:23] VITALS: BMI 24.7
[2020-11-07 17:32] VITALS: BP 165/101; PULSE 123; RESP 18; TEMP 36.6; O2SAT 97; BMI 25.7
--- NOTE | 2020-11-07 17:44 | ED.VIS.LOWEX ---
HPI History of Present Illness Chief Complaint: Lower Extremity Injury Informant: patient and spouse/S.O. Occured/Mechanism Mechanism/Context: Yes injury Onset/Context/Timing Onset: Today and Hours Context: Sudden Onset Timing: Continuous Current Severity: Mild Maximum Severity: Moderate Associated Symptoms Associated Symptoms: Negative for Parasthesia and Weakness Narrative Narrative: Healthy 59-year-old male that was playing dodgeball with his grandchildren. He felt a pop and developed pain in his right posterior distal third of his hamstring. No prior history no prior surgery. Denies hip, knee or ankle pain. Denies any other complaints. States it is much more painful to try to bear weight on it. Prior similar symptoms: No Recent Illness/Hospitalization: No PFSH PFSH Home Medications garlic 500 mg PO DAILY 07/02/19 [History Last Taken 07/31/19] guselkumab 100 mg SQ UD 07/02/19 [History Last Taken 07/26/19] multivitamin with minerals 1 tab PO DAILY 07/02/19 [History Last Taken 07/31/19] omega-3 fatty acids 1,000 mg PO DAILY 07/02/19 [History Last Taken 07/31/19] omeprazole 20 mg PO DAILY 07/31/19 [History Last Taken 07/31/19] prednisone 40 mg PO DAILY@0800 #14 tab 08/02/19 [Rx Last Taken Unknown] Allergy/AdvReac Type Severity Reaction Status Date / Time prednisone AdvReac Chest Verified 11/07/20 17:32 tightness Social History Smoking Status: Former smoker ROS ROS ED ROS Narrative Denies recent illness. Review of Systems ROS Unobtainable: Denies due to encephalopathy Constitutional Constitutional ED: Denies fever(s) Eyes Eyes: Denies change in vision ENT ENT ED: Denies ear pain or sore throat Cardiovascular Cardiovascular: Denies chest pain Respiratory/Chest Respiratory/Chest: Denies cough or dyspnea Gastrointestinal Gastrointestinal: Denies abdominal pain, diarrhea, nausea or vomiting Genitourinary Genitourinary ED: Denies dysuria Musculoskeletal Musculoskeletal: Denies myalgias Integumentary Denies rash Neurologic Neurologic: Denies headache(s) Psychiatric Psychiatric: Denies depression Endocrine Endocrinology: Denies polyuria Hematologic/Lymphatic Hematologic/Lymphatic: Denies easy bruising Allergic/Immunologic Allergic/Immunologic ED: Denies urticaria EXAM Physical Exam Narrative Exam Narrative: Middle-aged male no acute distress lying on his side. Has his right hip and knee flexed. Exam unremarkable except tenderness along his distal half of the his hamstring. The right hip knee ankle and foot are nontender neurovascular intact he can be range of motion. It causes more pain in his hamstring. There is no bony deformity. There is no bruising or swelling. Calf is nontender nonswollen. Right foot neurovascularly intact. Otherwise exam unremarkable. Const Vital Signs: 11/07/20 17:32 Temperature 97.8 F Temperature Source Temporal Pulse Rate 123 H Respiratory Rate 18 Blood Pressure 165/101 H Blood Pressure Mean 122 Pulse Ox 97 Oxygen Delivery Method Room Air HEENT Reports moist mucous membranes normocephalic and atraumatic Eyes PERRL Neck full ROM and supple Thyroid: Negative for tender Chest Wall inspection of chest normal and palpation of chest normal Resp normal respiratory effort, no retractions and clear to auscultation bilaterally Cardio regular rate, regular rhythm and no murmurs GI non-tender, non-distended and no masses Auscultation: normoactive bowel sounds Palpation: soft; Negative for tender Back/Spine no CVA tenderness Extremity normal to inspection Extremity Narrative: Normal inspection of all extremities except he has tenderness to the distal half of his right hamstring. There is no gross deficit. He has normal flexion-extension of his right hip, knee and right ankle. There is no edema. No bruising. No swelling. Calf is nontender no edema. Neuro oriented x3 Sensorium / Orientation: alert, oriented to person, oriented to place and oriented to time Psych mental status grossly normal Skin Lesions: no lesions Rashes: no rashes MDM MDM MDM Narrative Medical decision making narrative: Patient clinically has a pulled hamstring. Has had no bony deformity. I will obtain an x-ray but think it is unlikely it is only bony abnormality. He will be treated with Motrin for pain. Repeat exam at 6:23 PM no change to be discharged home However his x-ray results. Radiography Diagnostic Testing: X-ray of the femur 2 views AP lateral interpreted by myself shows no acute abnormality. No bony abnormality. Consistent with a hamstring strain. Discharge Plan Triage Chief Complaint: Lower Extremity Injury ED Provider: Yunior Latif Dx/Rx/DC Orders Clinical Impression: Hamstring muscle strain Instructions: ED Muscle Strain, Extremity Prescriptions: No Action guselkumab 100 MG/ML syringe 100 mg SQ UD RF: 0 omega-3 fatty acids 1,000 MG capsule 1,000 mg PO DAILY RF: 0 garlic 500 MG capsule 500 mg PO DAILY RF: 0 multivitamin with minerals 1 EACH tablet 1 tab PO DAILY RF: 0 omeprazole 20 MG tablet,delayed release (DR/EC) 20 mg PO DAILY RF: 0 prednisone 20 MG tablet 40 mg PO DAILY@0800 Qty: 14 RF: 0 Primary Care Provider: John Jones Referrals: John Jones MD [Primary Care Provider] - 1 Week if not improving Activity Restrictions/Additional Instructions: Ice and elevate your right hamstring to decrease pain and swelling. Rest the muscle and slowly increase activity as tolerated. If this is not improving follow-up with primary care physician for further evaluation. You may develop some mild bruising on the back of the hamstring. Motrin for pain and swelling and inflammation and Tylenol for pain. Disposition Disposition: Home, self care
--- NOTE | 2020-11-07 17:51 | RAD_ITS ---
HISTORY: pain right hamstring EXAMINATION/TECHNIQUE: XR Femur Min 2 Views: COMPARISON: None FINDINGS: BONES/JOINTS: No acute fracture or dislocation. Preservation of the joint spaces. No sclerotic or destructive changes observed. SOFT TISSUES: No soft tissue swelling or gas. No radiopaque foreign body. RAD/Femur Min 2 Views IMPRESSION: No acute bony abnormality. at 1852 Reported and signed by: Ramez Patel MD Electronically Signed: Ramez Patel MD at 18:50 EDT Tel , Service support ,
[2020-11-07] MEDS: Ibuprofen 400 MG Tablet 800 MG PO (18:15)
--- NOTE | 2020-11-07 18:34 | ED.RN ---
patient declined crutches, states he has 2 sets at the house and will use those
== END 2020-11-07 18:36 | disposition home or self-care (01) ==
LOC: ED 18:03
PROVIDERS: Emergency Provider Emergency Medicine; PCP Family Medicine
DX: S76.311A Strain of muscle, fascia and tendon of the posterior muscle group at thigh level, right thigh, initial encounter (principal); X58.XXXA Exposure to other specified factors, initial encounter; Y93.6A Activity, physical games generally associated with school recess, summer camp and children; Y92.9 Unspecified place or not applicable; Y99.9 Unspecified external cause status; Z79.52 Long term (current) use of systemic steroids; Z87.891 Personal history of nicotine dependence
CPT/HCPCS: 73552; 99283

== ENCOUNTER 2020-11-08 21:35 | Emergency (ER) | payer OTHER, SELFPAY ==
[2020-11-07 17:32] VITALS: BMI 25.7
[2020-11-08 21:36] VITALS: BP 114/66; PULSE 86; RESP 15; TEMP 36.4; O2SAT 96; BMI 25.7
--- NOTE | 2020-11-08 22:48 | EX.ED.DYSGE1 ---
HPI History of Present Illness Chief Complaint: Lower Extremity Injury Informant: patient Onset/Context/Timing Onset: Yesterday Location: R Hamstring Current Severity: Severe Maximum Severity: Severe Worsened by: Use Associated Symptoms Associated Symptoms: None Narrative Recent Illness/Hospitalization: No PFSH PFSH Home Medications garlic 500 mg PO DAILY 07/02/19 [History Last Taken 07/31/19] guselkumab 100 mg SQ UD 07/02/19 [History Last Taken 07/26/19] multivitamin with minerals 1 tab PO DAILY 07/02/19 [History Last Taken 07/31/19] omega-3 fatty acids 1,000 mg PO DAILY 07/02/19 [History Last Taken 07/31/19] omeprazole 20 mg PO DAILY 07/31/19 [History Last Taken 07/31/19] prednisone 40 mg PO DAILY@0800 #14 tab 08/02/19 [Rx Last Taken Unknown] oxycodone-acetaminophen [Percocet] 1 tab PO Q6H PRN 3 Days #12 tab 11/08/20 [Rx Last Taken Unknown] Allergy/AdvReac Type Severity Reaction Status Date / Time prednisone AdvReac Chest Verified 11/08/20 21:38 tightness Social History Smoking Status: Former smoker ROS ROS ED Constitutional Constitutional ED: Denies fever(s) Eyes Eyes: Denies change in vision ENT ENT ED: Denies ear pain Cardiovascular Cardiovascular: Denies chest pain Respiratory/Chest Respiratory/Chest: Denies dyspnea Gastrointestinal Gastrointestinal: Denies abdominal pain Genitourinary Genitourinary ED: Denies dysuria Musculoskeletal Musculoskeletal: Reports arthralgias and myalgias; Denies back pain or neck pain Integumentary Denies rash Neurologic Neurologic: Denies headache(s), paresthesias or weakness Psychiatric Psychiatric: Denies depression Endocrine Endocrinology: Denies polyuria Allergic/Immunologic Allergic/Immunologic ED: Denies urticaria EXAM Physical Exam Const Vital Signs: 11/08/20 21:36 Temperature 97.5 F L Temperature Source Temporal Pulse Rate 86 Respiratory Rate 15 Blood Pressure 114/66 Blood Pressure Mean 82 Pulse Ox 96 Oxygen Delivery Method Room Air Positive well nourished and well developed General Appearance ED: well developed Eyes EOMs intact bilaterally Resp normal respiratory effort Extremity normal to inspection General Extremety ED: Yes tenderness; Negative for edema General Extremity: Negative for edema Neuro no sensory deficits noted Neuro Narrative: Weak knee flexion on R Sensorium / Orientation: alert Motor Exam: Negative for strength 5/5 throughout Psych mental status grossly normal Skin no rashes or lesions noted MDM MDM MDM Narrative Medical decision making narrative: Pt has a hamstring tear. Xrays from yesterday reviewed with patient. Will treat his pain and refer to ortho. No other emergent recs this evening Discharge Plan Triage Chief Complaint: Lower Extremity Injury ED Provider: Ej Phan Dx/Rx/DC Orders Clinical Impression: Hamstring muscle strain Instructions: ED Muscle Strain, Extremity Prescriptions: New oxycodone-acetaminophen [Percocet] 5-325 mg tablet 1 tab PO Q6H PRN (Reason: pain) 3 Days Qty: 12 RF: 0 No Action guselkumab 100 MG/ML syringe 100 mg SQ UD RF: 0 omega-3 fatty acids 1,000 MG capsule 1,000 mg PO DAILY RF: 0 garlic 500 MG capsule 500 mg PO DAILY RF: 0 multivitamin with minerals 1 EACH tablet 1 tab PO DAILY RF: 0 omeprazole 20 MG tablet,delayed release (DR/EC) 20 mg PO DAILY RF: 0 prednisone 20 MG tablet 40 mg PO DAILY@0800 Qty: 14 RF: 0 Primary Care Provider: John Jones Referrals: John Jones MD [Primary Care Provider] - Almas Castellanos DO [STAFF PHYSICIAN] - Disposition Disposition: Home, self care
[2020-11-08] MEDS: HYDROmorphone 1 MG/ML Syringe SC (22:55)
--- NOTE | 2020-11-08 23:35 | ED.RN ---
PT and wanted a muscle relaxer because pt can barely lift his leg up off the bed. Doctor consulted and flexeril rx printed. initially said that Percocets don't work but didn't have another pain med suggestion. Stating we don't know anything about pain medications. Informed PT nothing stronger than Percocets were prescribed by the ED. She said they will try the percocet. PT will visit Dr. Jones's office in am.
== END 2020-11-08 23:37 | disposition home or self-care (01) ==
LOC: ED 23:04
PROVIDERS: Emergency Provider Emergency Medicine; PCP Family Medicine
DX: S76.312A Strain of muscle, fascia and tendon of the posterior muscle group at thigh level, left thigh, initial encounter (principal); X58.XXXA Exposure to other specified factors, initial encounter; Z87.891 Personal history of nicotine dependence
CPT/HCPCS: 96374; 99283

== ENCOUNTER 2020-12-07 10:14 | Emergency (ER) | payer OTHER, SELFPAY ==
[2020-12-07 10:15] VITALS: BP 146/84; PULSE 110; RESP 18; TEMP 36.4; O2SAT 96; BMI 24.4
--- NOTE | 2020-12-07 10:28 | EKG12_ITS ---
Test Reason : GEN ILL Blood Pressure : / mmHG Vent. Rate : 086 BPM Atrial Rate : 086 BPM P-R Int : 150 ms QRS Dur : 096 ms QT Int : 348 ms P-R-T Axes : 037 023 036 degrees QTc Int : 416 ms Normal sinus rhythm Normal ECG Confirmed by DELBERT KRUEGER, MARY ([id number]), editor department CLARISA HOOK ([id number]) on 12/10/2020 10:03:54 AM Referred By: TL Confirmed By:MARY MANDUJANO MD
--- NOTE | 2020-12-07 10:28 | CT_ITS ---
STUDY: CTA CHEST REASON FOR EXAM: Male, 60 years old. Chest pain. Shortness of breath. Recent surgery. RADIATION DOSAGE (If Supplied By Facility): CTDIvol = ( 12.38 ) mGy, DLP = ( 485.59 ) mGycm TECHNIQUE: The examination was performed with the intravenous administration of IV 100mL Isovue-370. Post-processing of the angiographic images was performed, with multiplanar reformation and 3D reconstruction. Individualized dose optimization techniques were used for this CT. COMPARISON: None. FINDINGS: Small bilateral axillary lymph nodes. Multiple bilateral pulmonary emboli. Thrombi is seen within the left and right interlobar pulmonary arteries. Normal thoracic aorta and visualized great vessels. There is no demonstrated aortic dissection. Normal heart and pericardium. Normal mediastinum. Normal hilar regions. Normal visualized trachea and bronchi. The lungs are well expanded. Increased markings at the lung bases likely more prominent on the left side suggestive of atelectasis. Normal pleura. Normal chest wall structures. There are degenerative changes of thoracic spine. Normal visualized upper abdomen. CT/CTA Chest W/WO Contrast IMPRESSION: Multiple bilateral pulmonary emboli is described. Findings suggest bibasilar atelectasis. Electronically Signed: Rylan Perkins MD at 11:34 EDT , Service support ,
--- NOTE | 2020-12-07 10:29 | EDS_ITS ---
HPI History of Present Illness Chief Complaint: Chest Pain Informant: patient and spouse/S.O. Narrative Narrative: 60-year-old male presents the emergency department with chest pain. Patient states that symptoms began yesterday afternoon describes a sharp over the lower left aspect of his chest into his back and up into his jaw and face. He states he has had this before on the right side and has been musculoskeletal in nature. However he just had hamstring surgery 2 weeks ago and has been rather immobile. He denies any prior history of coronary artery disease or pulmonary embolism. He states that typically he has to see a chiropractor at least every 3 weeks for his back. No fever. No cough. [facility] Medical History (Updated 12/07/20 @ 12:[address] Ej Castrejon DO) Former smoker GERD (gastroesophageal reflux disease) Hamstring tear Hypertension Home Medications guselkumab 100 mg SQ UD 07/02/19 [History Last Taken 07/26/19] multivitamin with minerals 1 tab PO DAILY 07/02/19 [History Last Taken 07/31/19] omega-3 fatty acids 1,000 mg PO DAILY 07/02/19 [History Last Taken 07/31/19] omeprazole 20 mg PO DAILY 07/31/19 [History Last Taken 07/31/19] aspirin 81 mg PO BID 12/07/20 [History Last Taken Unknown] rivaroxaban [Xarelto DVT-PE Treat 30d Start] See Rx Instructions .ROUTE .COMPLEX #51 tab 12/07/20 [Rx Last Taken Unknown] Allergy/AdvReac Type Severity Reaction Status Date / Time tramadol [From Ultram] Allergy Other Verified 12/07/20 10:41 prednisone AdvReac Chest Verified 12/07/20 10:17 tightness Surgical History (Updated 12/07/20 @ 10:40 by Johanna Smith) Hx of carpal tunnel repair Social History (Updated 12/07/20 @ 10:[address] Ej Castrejon DO) Smoking Status: Former smoker substance use type: does not use ROS ROS ED Constitutional Constitutional ED: Denies chills or weight loss Eyes Eyes: Denies change in vision or diplopia ENT ENT ED: Denies ear pain, rhinorrhea or sore throat Cardiovascular Cardiovascular: Reports chest pain; Denies orthopnea, palpitations or racing heartbeat Respiratory/Chest Respiratory/Chest: Reports dyspnea; Denies cough, orthopnea or sputum Gastrointestinal Gastrointestinal: Denies abdominal pain, diarrhea, nausea or vomiting Genitourinary Genitourinary ED: Denies dysuria, hematuria or urinary frequency Musculoskeletal Musculoskeletal: Denies arthralgias or myalgias Integumentary Denies abscess or rash Neurologic Neurologic: Denies headache(s) or weakness Psychiatric Psychiatric: Denies anxiety, depression, suicidal ideation or suicidal thoughts Endocrine Endocrinology: Denies polydipsia, polyphagia or polyuria Allergic/Immunologic Allergic/Immunologic ED: Denies mouth swelling, tongue swelling or urticaria EXAM Physical Exam Const Vital Signs: 12/07/20 10:15 12/07/20 10:34 Temperature 97.5 F L Temperature Source Temporal Pulse Rate 110 H 102 H Respiratory Rate 18 20 H Blood Pressure 146/84 H 160/91 H Blood Pressure Mean 104 114 Pulse Ox 96 97 Oxygen Delivery Method Room Air Room Air Positive well nourished and well developed General Appearance ED: well developed HEENT Reports normocephalic, head/scalp atraumatic and moist mucous membranes Eyes PERRL and EOMs intact bilaterally Neck no lymphadenopathy, supple and no JVD Chest Wall Chest Narrative: Mild tenderness to palpation over the lower left anterior ribs. Does not reproduce his pain Resp normal respiratory effort and clear to auscultation bilaterally Cardio regular rate and no murmurs Rate: tachycardic GI normal to inspection, nondistended, normoactive bowel sounds and non-tender Palpation: soft Back/Spine no CVA tenderness and normal ROM Extremity normal to inspection General Extremety ED: Negative for edema General Extremity: Negative for edema Neuro oriented x3 and CN's II-XII intact bilaterally Sensorium / Orientation: alert Motor Exam: strength 5/5 throughout Psych mental status grossly normal Mood & Affect: Negative for depressed or tearful Skin no rashes or lesions noted and no wounds Heart Score History: Slightly/Non-Suspicious ECG: Normal Age: >45 - <65 years Risk Factors: 1 or 2 Risk Factors Troponin: </= Normal Limit Score: 2 MDM MDM MDM Narrative Medical decision making narrative: CTA demonstrates bilateral pulmonary emboli sms. Patient has remained hemodynamically stable. He is 96% on room air. His troponin is normal. There is no evidence of right heart strain. Patient will be started on Xarelto. He was encouraged to follow-up with his family doctor as well as his orthopedic surgeon. Lab Data Attestation: I reviewed the patient's lab results. Labs: Laboratory Results - last 24 hr 12/07/20 12/07/20 12/07/20 10:32 10:32 10:32 WBC 9.7 RBC 4.36 L Hgb 13.1 Hct 39.9 L MCV 91.5 MCH 30.0 MCHC 32.8 RDW Std Deviation 41.8 RDW Coeff of Jose 12.4 Plt Count 473 H MPV 8.4 Immature Gran % (Auto) 0.500 Neut % (Auto) 79.2 H Lymph % (Auto) 9.9 L [place] % (Auto) 8.5 Eos % (Auto) 1.4 Baso % (Auto) 0.5 Absolute Neuts (auto) 7.7 Absolute Lymphs (auto) 0.96 Nucleated RBC % 0 PT 13.0 INR 1.0 APTT 29.9 Sodium 136 Potassium 3.7 Chloride 103 Carbon Dioxide 27.0 Anion Gap 6 BUN 15 Creatinine 0.99 Estim Creat Clear Calc 90.80 Est GFR (MDRD) Af Amer 99 Est GFR (MDRD) Non-Af 82 BUN/Creatinine Ratio 15.1 Glucose 130 H Calcium 9.2 Troponin I High Sens 3.2 Radiography Diagnostic Testing: Radiology Impression Chest CTA 12/07/20 10:28 IMPRESSION: Multiple bilateral pulmonary emboli is described. Findings suggest bibasilar atelectasis. Electronically Signed: Rylan Perkins MD at 11:34 EDT , Service support , EKG Initial EKG: Attestation: I personally reviewed and interpreted this EKG as follows: Comments: EKG reveals a sinus rhythm at a rate of 98 bpm. This was a technically difficult EKG to obtain. Discharge Plan Triage Chief Complaint: Chest Pain ED Provider: Ej Castrejon Dx/Rx/DC Orders Clinical Impression: Bilateral pulmonary embolism, Chest pain Instructions: Pulmonary Embolism Prescriptions: New Xarelto DVT-PE Treat 30d Start 15 mg (42)- 20 mg (9) tablets,dose pack See Rx Instructions .ROUTE .COMPLEX Qty: 51 RF: 0 No Action guselkumab 100 MG/ML syringe 100 mg SQ UD RF: 0 omega-3 fatty acids 1,000 MG capsule 1,000 mg PO DAILY RF: 0 multivitamin with minerals 1 EACH tablet 1 tab PO DAILY RF: 0 omeprazole 20 MG tablet,delayed release (DR/EC) 20 mg PO DAILY RF: 0 aspirin 81 mg Tablet 81 mg PO BID RF: 0 Primary Care Provider: John Jones Referrals: John Jones MD [Primary Care Provider] - As soon as possible Disposition Disposition: Home, Self Care
[2020-12-07 10:34] VITALS: BP 160/91; PULSE 102; RESP 20; O2SAT 97
[2020-12-07 10:39] LABS: Absolute Lymphocyte Count 0.96 X10^3/uL (0.83-4.51); Absolute Neutrophil Count 7.7 X10^3/uL (2.0-7.7); Basophil# 0.05 X10^3/uL; Basophil% 0.5 % (0-1); Eosinophil# 0.14 X10^3/uL; Eosinophils% 1.4 % (0-5); Hematocrit 39.9 % (40-54); Hemoglobin 13.1 g/dL (13.0-16.5); Lymphocyte # 0.96 X10^3/ul (0.83-4.51); Lymphocyte % 9.9 % (19-41); Mean Corp Hgb Conc 32.8 g/dL (32-36); Mean Corpuscular Volume 91.5 fL (80-94); Mean Platelet Vol. 8.4 fl (6.2-12.0); Monocyte# 0.83 X10^3/uL; Monocyte% 8.5 % (0-10); NRBC Flagged by Analyzer 0 % (0-5); Neutrophil % 79.2 % (47-70); Platelet Count 473 K/mm3 (150-450); RBC Distribution Width CV 12.4 % (11.6-14.6); RBC Distribution Width SD 41.8 fl (35.1-43.9); Red Blood Count 4.36 M/mm3 (4.6-6.2); White Blood Count 9.7 K/mm3 (4.4-11.0)
[2020-12-07] MEDS: 0.9% Normal Saline 1,000 ML 1000 ML IV (10:47)
[2020-12-07] MEDS: Ketorolac 30 MG/ML Syringe IV (10:48)
[2020-12-07 10:51] LABS: Partial Thromboplast Time 29.9 Seconds (24.1-36.2)
[2020-12-07 10:59] LABS: Anion Gap 6 (5-15); BUN 15 mg/dL (7-18); BUN/Creat Ratio 15.1 RATIO (10-20); Calcium,Total 9.2 mg/dL (8.5-10.1); Chloride 103 mmol/L (98-107); Creatinine, Serum 0.99 mg/dL (0.70-1.30); EST Glomerular Filtration Rate 82 mL/min (>60); Est Glom Filt Rate - Afr Amer 99 mL/min (>60); Glucose 130 mg/dL (74-106); Potassium 3.7 mmol/L (3.5-5.1); Sodium Level 136 mmol/L (136-145); Troponin-I HS 3.2 pg/mL (3.0-78.5)
[2020-12-07 12:47] VITALS: BP 124/79; PULSE 83; RESP 20; O2SAT 95
[2020-12-07] MEDS: Rivaroxaban 15 MG Tablet PO (12:54)
== END 2020-12-07 12:55 | disposition home or self-care (01) ==
PROVIDERS: Emergency Provider Emergency Medicine; PCP Family Medicine
DX: I26.99 Other pulmonary embolism without acute cor pulmonale (principal); I10 Essential (primary) hypertension; K21.9 Gastro-esophageal reflux disease without esophagitis; Z79.82 Long term (current) use of aspirin; Z79.899 Other long term (current) drug therapy; Z87.891 Personal history of nicotine dependence
CPT/HCPCS: 71275; 80048; 84484; 85025; 85610; 85730; 93005; 96361; 96374; 99285; J7030; Q9967; A4216

== ENCOUNTER 2020-12-08 01:37 | Observation (INO) | payer OTHER, SELFPAY ==
[2020-12-07 10:15] VITALS: BMI 24.4
[2020-12-08] VITALS (13 sets, daily range): BP systolic 120–158; BP diastolic 76–112; PULSE 97–116; RESP 16–22; TEMP 36.5–37.6; O2SAT 94–99; BMI 23.7; BMI 25.7
--- NOTE | 2020-12-08 02:14 | EKG12_ITS ---
Test Reason : CP Blood Pressure : / mmHG Vent. Rate : 098 BPM Atrial Rate : 098 BPM P-R Int : 142 ms QRS Dur : 090 ms QT Int : 332 ms P-R-T Axes : 035 028 048 degrees QTc Int : 423 ms Sinus rhythm Confirmed by DELBERT KRUEGER, MARY ([id number]), makeup editor CLARISA HOOK ([id number]) on 12/08/2020 12:41:40 PM Referred By: PARESH Confirmed By:MARY MANDUJANO MD
--- NOTE | 2020-12-08 02:20 | EX.ED.DYSGE1 ---
HPI History of Present Illness Chief Complaint: General Illness Informant: patient Narrative Narrative: Patient returns to the ED for persistent increasing left lower chest pain. He was seen earlier today in the ED. He was worked up and found to have bilateral PEs. He is status post hamstring tendon repair 15 days ago from [facility]. He has a leg brace. He was started on Xarelto from the ED, he took a second dose this evening. Due to discomfort he is unable to lay still. He states he had reactions to Percocet post surgery causing palpitations. They tried tramadol which does not help. He presents due to persistent discomfort at this time. I reviewed records, CTA from earlier yesterday morning, noted bilateral interlobar PE. [facility] Medical History Former smoker GERD (gastroesophageal reflux disease) Hamstring tear Hypertension Home Medications guselkumab [Tremfya] 100 mg SQ UD 07/02/19 [History Last Taken 07/26/19] multivitamin with minerals 1 tab PO DAILY 07/02/19 [History Last Taken 07/31/19] omega-3 fatty acids 1,000 mg PO DAILY 07/02/19 [History Last Taken 07/31/19] omeprazole 20 mg PO DAILY 07/31/19 [History Last Taken 07/31/19] aspirin 81 mg PO BID 12/07/20 [History Last Taken Unknown] rivaroxaban [Xarelto DVT-PE Treat 30d Start] See Rx Instructions .ROUTE .COMPLEX #51 tab 12/07/20 [Rx Last Taken Unknown] Allergy/AdvReac Type Severity Reaction Status Date / Time tramadol [From Ultram] Allergy Other Verified 12/07/20 10:41 prednisone AdvReac Chest Verified 12/07/20 10:17 tightness Family History (Updated 12/08/20 @ 05:[address] Rickey Gilbert MD) Mother Fibromyalgia Hypertension Surgical History H/O knee surgery Hx of carpal tunnel repair Social History Smoking Status: Former smoker substance use type: does not use ROS ROS ED Constitutional Constitutional ED: Denies chills, fever(s) or sweats Eyes Eyes: Denies change in vision ENT ENT ED: Denies dysphagia or sore throat Cardiovascular Cardiovascular: Reports chest pain; Denies leg edema, palpitations or racing heartbeat Respiratory/Chest Respiratory/Chest: Denies cough, dyspnea or dyspnea on exertion Gastrointestinal Gastrointestinal: Denies abdominal pain, diarrhea, nausea or vomiting Genitourinary Genitourinary ED: Denies dysuria, hematuria or urinary frequency Musculoskeletal Musculoskeletal: Denies back pain, extremity pain or neck pain Integumentary Denies rash or wounds Neurologic Neurologic: Denies headache(s), paresthesias or weakness EXAM Physical Exam Const Vital Signs: 12/08/20 01:38 12/08/20 02:26 12/08/20 03:29 Temperature 97.7 F L Temperature Source Temporal Pulse Rate 99 103 H Respiratory Rate 17 16 Blood Pressure 158/84 H 129/84 H Blood Pressure Mean 108 99 Pulse Ox 97 98 96 Oxygen Delivery Method Room Air Room Air Positive well nourished and well developed Constitutional Narrative: Uncomfortable, unable to sit still in 1 position. No respiratory distress. General Appearance ED: well developed HEENT Reports moist mucous membranes normocephalic and atraumatic Eyes PERRL, EOMs intact bilaterally and conjunctivae normal General Eye ED: Yes normal appearance of both eyes Neck no lymphadenopathy and supple General: Negative for tenderness Chest Wall Chest: Negative for tenderness Resp normal respiratory effort and normal air movement Effort and Inspection: symmetric chest movement; Negative for respiratory distress Cardio regular rate, regular rhythm and no murmurs Peripheral Pulses: pulses 2+ throughout GI normal to inspection, nondistended, normoactive bowel sounds and non-tender Palpation: Negative for guarding or rebound tenderness present Back/Spine no CVA tenderness and no thoracic nor lumbar tenderness Extremity normal to inspection Extremity Narrative: Right lower extremity lateral leg brace. Neurovascular intact distally. General Extremety ED: Yes edema; Negative for tenderness General Extremity: edema Neuro oriented x3 and no sensory deficits noted Sensorium / Orientation: awake and alert Skin no rashes or lesions noted and no wounds MDM MDM MDM Narrative Medical decision making narrative: Patient had diagnosed bilateral PE yesterday. Returns with increasing pain. He is not hypoxic. Initial vitals are stable. I did recheck EKG and high sensitive troponin which was normal and negative. Dosed with morphine with an change in symptoms. Additional fentanyl was given IV. Reevaluation he states he still has no change in comfort. Heart rate up in the low 100s. He states symptoms worsen when he lays down. Due to his discomfort I will speak with hospitalist for plan admission. 0430: I did speak with hospitalist, Dr. Gilbert, who evaluated the patient. Requests trial of hydrocodone in the ED and reevaluate prior to admission. 0600: Reevaluation patient states minimal relief with medications. Will rediscuss with hospitalist for admission. Lab Data Attestation: I reviewed the patient's lab results. Labs: Laboratory Results - last 24 hr 12/08/20 02:34 Troponin I High Sens < 3.0 L EKG Initial EKG: Attestation: I personally reviewed and interpreted this EKG as follows: Comments: Sinus rate of 86. No ST or T wave changes. Discharge Plan Triage Chief Complaint: General Illness ED Provider: Lamine Hutton Dx/Rx/DC Orders Clinical Impression: Bilateral pulmonary embolism, Chest pain Prescriptions: No Action Tremfya 100 MG/ML syringe 100 mg SQ UD RF: 0 omega-3 fatty acids 1,000 MG capsule 1,000 mg PO DAILY RF: 0 multivitamin with minerals 1 EACH tablet 1 tab PO DAILY RF: 0 omeprazole 20 MG tablet,delayed release (DR/EC) 20 mg PO DAILY RF: 0 aspirin 81 mg Tablet 81 mg PO BID RF: 0 Xarelto DVT-PE Treat 30d Start 15 mg (42)- 20 mg (9) tablets,dose pack See Rx Instructions .ROUTE .COMPLEX Qty: 51 RF: 0 Primary Care Provider: John Jones Referrals: John Jones MD [Primary Care Provider] -
[2020-12-08] MEDS: Morphine 4 MG/ML Syringe IV (02:25)
[2020-12-08 02:58] LABS: Troponin-I HS < 3.0 pg/mL (3.0-78.5)
[2020-12-08] MEDS: fentaNYL 100 MCG/2 ML Ampul 50 MCG IV (03:28)
--- NOTE | 2020-12-08 04:49 | HP.PCM.HOS_ITS ---
HPI - General HPI Narrative MAKAYLA PULIDO, is a 60 M with a significant history of psoriasis and who had right hamstring repair on 11/23/2020 at [facility] who presenting at the second time in 2 days with chest pain. His chest pain is at his lateral left ribs. He described the pain as sharp. The pain is aggravated with lying down and taking a deep breath. The pain improves with sitting or standing up. The pain radiates to his left upper shoulder and left side of his neck. The pain is persistent. He denies any nausea or vomiting. He reports shortness of breath. He was at the emergent department on 12/07/2020 and he was diagnosed with bilateral PE and was discharged home on Xarelto. However he returned on 12/08/2020 because he could not bear the pain. Emergent department doctor gave patient IV morphine and IV fentanyl. However patient alcohol still not lie down to sleep. He was sitting down on the emergency department bed. [facility] Medical History Former smoker GERD (gastroesophageal reflux disease) Hamstring tear Hypertension Home Medications guselkumab [Tremfya] 100 mg SQ UD 07/02/19 [History Last Taken 07/26/19] multivitamin with minerals 1 tab PO DAILY 07/02/19 [History Last Taken 07/31/19] omega-3 fatty acids 1,000 mg PO DAILY 07/02/19 [History Last Taken 07/31/19] omeprazole 20 mg PO DAILY 07/31/19 [History Last Taken 07/31/19] aspirin 81 mg PO BID 12/07/20 [History Last Taken Unknown] rivaroxaban [Xarelto DVT-PE Treat 30d Start] See Rx Instructions .ROUTE .COMPLEX #51 tab 12/07/20 [Rx Last Taken Unknown] Allergy/AdvReac Type Severity Reaction Status Date / Time tramadol [From Ultram] Allergy Other Verified 12/07/20 10:41 prednisone AdvReac Chest Verified 12/07/20 10:17 tightness Family History (Updated 12/08/20 @ 05:[address] Rickey Gilbert MD) Mother Fibromyalgia Hypertension Surgical History H/O knee surgery Hx of carpal tunnel repair Social History Smoking Status: Former smoker substance use type: does not use ROS ROS Narrative 12 point review of system is negative except as stated in HPI. Vital Signs Vital Signs Vital Signs: 12/08/20 01:38 12/08/20 02:26 12/08/20 03:29 Temperature 97.7 F L Temperature Source Temporal Pulse Rate 99 103 H Respiratory Rate 17 16 Blood Pressure 158/84 H 129/84 H Blood Pressure Mean 108 99 Pulse Ox 97 98 96 Oxygen Delivery Method Room Air Room Air Weight Weight: 81.647 kg Body Mass Index (BMI) 23.7 Physical Exam Narrative Physical exam: General: Well-nourished, well-developed, no acute distress Head: Normocephalic, atraumatic, no tenderness Eyes: PERRLA, EOMI ENT, no trauma, moist mucous membranes, no rhinorrhea CVS: Tachycardia; S1-S2 present. Respiratory no acute distress, clear to auscultation bilaterally, chest wall nontender, no wheezing Abdomen: Soft, nontender, nondistended, normal bowel sounds, no masses : Deferred Extremities: Swelling of right knee two fourths. Surgical brace to right knee to right leg. Left leg with no swelling. Skin: Normal color, no trauma, abrasions Neuro: Alert, oriented, cranial nerves II through XII grossly intact. Results Lab / Micro Data Labs: Laboratory Results - last 24 hr 12/08/20 02:34: Troponin I High Sens < 3.0 L Assessment & Plan Assessment/Plan (1) Pulmonary embolism: QUALIFIERS: Pulmonary embolism type: multiple subsegmental (without acute cor pulmonale) Qualified Code(s): I26.94 - Multiple subsegmental pulmonary emboli without acute cor pulmonale PLAN: PE Discussed emergency point doctor to give 2 tablets of [place]. Of note patient has allergy to Percocet. Reportedly with Percocet preoperatively patient had tachycardia; shortness of breath and was hallucinating. Discussed with patient and with emergency department doctor that if patient's pain is relieved with [place] it is okay for patient to be discharged. However if patient's does not have relieve with [place] and is still unable to lie down to sleep then patient will be admitted for pain management. DVT prophylaxis: Not indicated since patient already have acute PE and is on Xarelto. Charges/Coding Multi Select Codes Visit Charges Observation E&M Codin Initial observation care L2 Office Visit/Consults: [id number] ED Visit; Moderate Severity
[2020-12-08] MEDS: HYDROcodone Bitartrate/Apap 5/325 Tablet PO (05:03)
--- NOTE | 2020-12-08 06:36 | NURSING ---
[address] alvaro dow pe, cp
[2020-12-08] MEDS: HYDROmorphone 2 MG TABLET PO (07:12)
[2020-12-08] MEDS: Rivaroxaban 15 MG Tablet PO ×2 (09:37→15:56)
[2020-12-08] MEDS: Multivitamins,Ther W-Minerals Tablet 1 TABLET PO (09:37)
[2020-12-08] MEDS: Pantoprazole Sodium 20 MG Tablet PO (09:37)
[2020-12-08] MEDS: Aspirin 81 MG TAB.CHEW PO ×2 (09:37→15:57)
[2020-12-08] MEDS: HYDROmorphone 1 MG/ML Syringe IV ×3 (12:19→23:07)
[2020-12-08] MEDS: 0.9% Saline Lock 10 ML Syringe IV ×2 (17:28→23:06)
[2020-12-09 03:00] VITALS: PULSE 96
[2020-12-09 03:15] VITALS: BP 115/77; PULSE 91; RESP 20; TEMP 36.7; O2SAT 93
[2020-12-09] MEDS: Acetaminophen 325 MG Tablet 650 MG PO (05:39)
[2020-12-09 07:26] VITALS: O2SAT 94
[2020-12-09 07:38] VITALS: PULSE 83
[2020-12-09 08:31] VITALS: BP 126/74; PULSE 92; RESP 16; TEMP 36; O2SAT 94
[2020-12-09] MEDS: Aspirin 81 MG TAB.CHEW PO (08:34)
[2020-12-09] MEDS: Pantoprazole Sodium 20 MG Tablet PO (08:34)
[2020-12-09] MEDS: Rivaroxaban 15 MG Tablet PO (08:34)
[2020-12-09] MEDS: Multivitamins,Ther W-Minerals Tablet 1 TABLET PO (08:34)
--- NOTE | 2020-12-09 10:29 | PCM.DC ---
Discharge Instructions Diet Discharge Diet: No restrictions Dressing / Incision Call your doctor if you observe: Fever of 101 or Higher, Shortness of breath, Dizziness, Swelling in the ankles, Chest pain and Increased palpitations (irregular heartbeat) Follow Up Care Test Results: Test results from this visit will be discussed in further detail at your follow-up appointment, if applicable. Discharge Plan Admission Admit Date/Time: 12/08/20 06:14 Attending Provider: Emiliano Pantoja Primary Care Provider: John Jones Instructions Patient Instructions: ED Chest Pain, Noncardiac, Pulmonary Embolism Discharge Orders/Prescriptions Prescriptions: Continued Tremfya 100 MG/ML syringe 100 mg SQ UD RF: 0 omega-3 fatty acids 1,000 MG capsule 1,000 mg PO DAILY RF: 0 multivitamin with minerals 1 EACH tablet 1 tab PO DAILY RF: 0 omeprazole 20 MG tablet,delayed release (DR/EC) 20 mg PO DAILY RF: 0 aspirin 81 mg Tablet 81 mg PO BID RF: 0 Xarelto DVT-PE Treat 30d Start 15 mg (42)- 20 mg (9) tablets,dose pack See Rx Instructions .ROUTE .COMPLEX Qty: 51 RF: 0 Referrals / Follow Up: John Jones MD [Primary Care Provider] - In 1 Week Naomi Remy MD [STAFF PHYSICIAN] - Within 1 Month Disposition Disposition (needs filled in before D/C Order can be placed): Home, Self Care
--- NOTE | 2020-12-09 11:09 | PHA.DC.MC ---
Pharmacy Service has performed discharge medication reconciliation and counseling for this patient. The patient was counseled on the following discharge medications and changes in medications for homegoing were reviewed. 1. XARELTO The Reason for Use, instructions for use, and potential side effects were reviewed for all new medications. The patient's questions regarding all of their medications were answered. The patient was able to verbally demonstrate an understanding of their discharge medications. Home Medications Tremfya 100 mg SQ UD 07/02/19 multivitamin with minerals 1 tab PO DAILY 07/02/19 omega-3 fatty acids 1,000 mg PO DAILY 07/02/19 omeprazole 20 mg PO DAILY 07/31/19 Xarelto DVT-PE Treat 30d Start See Rx Instructions .ROUTE .COMPLEX #51 tab 12/07/20 aspirin 81 mg PO BID 12/07/20 The patient's discharge medication list was reviewed for discrepancies and discrepancies were resolved.
--- NOTE | 2020-12-09 11:13 | CASEMGMT ---
RAZA SANCHEZ NOTE: Pt being discharged home. Call placed to Almita @ [facility] Retail pharmacy. Per Almita, pt got Xarelto on 12/07 and paid $136.93 for it. She states the Xarelto card was not applied. RAZA SANCHEZ to room to talk w/pt and who is at bedside. Xarelto savings card given to pt to apply for refills and instructed on use. They voice appreciation. Pt/ deny having any discharge planning needs. Laura KILLIANN RAZA CM
--- NOTE | 2020-12-09 15:20 | PCM.DC.SUM ---
Providers Date of Admission: 12/08/20 Primary Care Physician: Dr. John Jones MD Reason For Visit: PULMONARY EMBOLISM Diagnosis Discharge Diagnosis (1) Pulmonary embolism: Status: Acute Code(s): I26.99 - Other pulmonary embolism without acute cor pulmonale Qualifiers: Pulmonary embolism type: multiple subsegmental (without acute cor pulmonale) Qualified Code(s): I26.94 - Multiple subsegmental pulmonary emboli without acute cor pulmonale Medications at Discharge Home Medications Tremfya 100 mg SQ UD 07/02/19 multivitamin with minerals 1 tab PO DAILY 07/02/19 omega-3 fatty acids 1,000 mg PO DAILY 07/02/19 omeprazole 20 mg PO DAILY 07/31/19 Xarelto DVT-PE Treat 30d Start See Rx Instructions .ROUTE .COMPLEX #51 tab 12/07/20 aspirin 81 mg PO BID 12/07/20 Hospital Course Operations None Procedures None Summary of Care Provided Minutes Spent on Discharge: 45 Hospital Course: Per HPI: MAKAYLA PULIDO, is a 60 M with a significant history of psoriasis and who had right hamstring repair on 11/23/2020 at [facility] who presenting at the second time in 2 days with chest pain. His chest pain is at his lateral left ribs. He described the pain as sharp. The pain is aggravated with lying down and taking a deep breath. The pain improves with sitting or standing up. The pain radiates to his left upper shoulder and left side of his neck. The pain is persistent. He denies any nausea or vomiting. He reports shortness of breath. He was at the emergent department on 12/07/2020 and he was diagnosed with bilateral PE and was discharged home on Xarelto. However he returned on 12/08/2020 because he could not bear the pain. Emergent department doctor gave patient IV morphine and IV fentanyl. However patient alcohol still not lie down to sleep. He was sitting down on the emergency department bed. Hospital Course: 1. Chest pain secondary to bilateral [id number]-old male who recently suffered an injury on his left hip presented to the hospital with shortness of breath and chest pain and was found to have bilateral PEs. He was discharged on Xarelto as he was not tachycardic and had a normal troponin with no oxygen requirement, indicative of no right heart strain. He was sent home but then represented the next day with continuing severe chest pain. Troponin remain normal and he was still not tachycardic or short of breath. He received a couple doses of IV pain meds which did not seem to relieve the pain so he was admitted for monitoring. He was transitioned to IV Dilaudid 1 mg every 3 as needed. This seemed to have helped him get some rest and this morning he was saying that he was pain-free and would like to go home. He does have Percocet at home from his hip injury and he can take that as needed based on the instructions on the bottle. He should continue his Xarelto 15 mg p.o. twice daily for a total of 3 weeks and then transition to 20 mg p.o. daily. I also recommend that he follow-up with hematology for evaluation of his PEs as an outpatient. I discussed with him the plan for discharge today and he expressed understanding of the risk and benefits of going home and would like to go home today. Physical Exam Const alert, oriented x3 and no apparent distress General Appearance: cooperative HEENT normocephalic and moist oral mucous membranes Eyes PERRL, EOMs intact bilaterally and conjunctivae normal Neck supple and no JVD Resp normal respiratory effort, no retractions, no use of accessory muscles and clear to auscultation bilaterally Auscultation: Negative for crackles, rales, rhonchi or wheezes Cardio regular rate, regular rhythm, S1 normal heart sound, S2 normal heart sound and no murmurs GI soft to palpation, non-tender and non-distended; Negative for hepatosplenomegaly Extremity no clubbing, cyanosis or edema Skin no rashes or lesions noted Neuro no focal motor deficits and no sensory deficits noted Psych affect normal Appearance: appropriate Weight / BMI Weight Weight: 195 lb 0.013 oz Body Mass Index (BMI) 25.7 D/C Instructions Discharge Diet: No restrictions Call your doctor if you observe: Fever of 101 or Higher, Shortness of breath, Dizziness, Swelling in the ankles, Chest pain and Increased palpitations (irregular heartbeat) Meaningful Use Info Meaningful Use Diagnoses (Choose all that apply): VTE VTE Anticoag overlap given w/in hospital stay or rx'd at dc?: No Pt receive overlap for 5 days?: No Reason overlap not ordered, prescribed, or given for 5 days: Treatment Not Indicated Discharge Plan Admission Admit Date/Time: 12/08/20 06:14 Attending Provider: Emiliano Pantoja Primary Care Provider: John Jones Instructions Patient Instructions: Pulmonary Embolism, ED Chest Pain, Noncardiac Additional Instructions / Restrictions: Patient Problems: Altered Health Status related to Hospitalization Patient Goals: *Optimal Level of Health *Keep Appointments *Medication Compliance *Remain Safe Discharge Orders/Prescriptions Prescriptions: Continued Tremfya 100 MG/ML syringe 100 mg SQ UD RF: 0 omega-3 fatty acids 1,000 MG capsule 1,000 mg PO DAILY RF: 0 multivitamin with minerals 1 EACH tablet 1 tab PO DAILY RF: 0 omeprazole 20 MG tablet,delayed release (DR/EC) 20 mg PO DAILY RF: 0 aspirin 81 mg Tablet 81 mg PO BID RF: 0 Xarelto DVT-PE Treat 30d Start 15 mg (42)- 20 mg (9) tablets,dose pack See Rx Instructions .ROUTE .COMPLEX Qty: 51 RF: 0 Referrals / Follow Up: John Jones MD [Primary Care Provider] - In 1 Week (please call to schedule follow up appointment) Naomi Remy MD [STAFF PHYSICIAN] - Within 1 Month (Please call to schedule follow up appointment) Disposition Disposition (needs filled in before D/C Order can be placed): Home, Self Care Charges/Coding Visit Charges OBSV E&M: 74222 Observation care discharge
== END 2020-12-09 10:31 | disposition home or self-care (01) ==
LOC: ED 02:52 → PCU 06:21
PROVIDERS: Admitting Provider Hospitalist; Emergency Provider Emergency Medicine; PCP Family Medicine; Visit Provider Family Medicine
DX: I26.94 Multiple subsegmental thrombotic pulmonary emboli without acute cor pulmonale (principal); K21.9 Gastro-esophageal reflux disease without esophagitis; I10 Essential (primary) hypertension; Z87.891 Personal history of nicotine dependence; Z79.899 Other long term (current) drug therapy; Z98.890 Other specified postprocedural states; L40.9 Psoriasis, unspecified
CPT/HCPCS: 84484; 93005; 96374; 96375; 96376; 99218; 99285; A4216; G0378

== ENCOUNTER → 2021-02-07 14:21 | Outpatient (CLI) | payer OTHER, SELFPAY ==
[2021-02-07 18:07] LABS: Absolute Lymphocyte Count 1.29 X10^3/uL (0.83-4.51); Absolute Neutrophil Count 4.2 X10^3/uL (2.0-7.7); Basophil# 0.03 X10^3/uL; Basophil% 0.5 % (0-1); Eosinophil# 0.03 X10^3/uL; Eosinophils% 0.5 % (0-5); Hematocrit 42.4 % (40-54); Hemoglobin 14.1 g/dL (13.0-16.5); Lymphocyte # 1.29 X10^3/ul (0.83-4.51); Lymphocyte % 20.5 % (19-41); Mean Corp Hgb Conc 33.3 g/dL (32-36); Mean Corpuscular Hgb 30.2 pg (27.0-32.0); Mean Corpuscular Volume 90.8 fL (80-94); Mean Platelet Vol. 8.9 fl (6.2-12.0); Monocyte# 0.67 X10^3/uL; Monocyte% 10.7 % (0-10); NRBC Flagged by Analyzer 0 % (0-5); Neutrophil # 4.23 X10^3/uL (2.7-7.7); Neutrophil % 67.3 % (47-70); Platelet Count 437 K/mm3 (150-450); RBC Distribution Width CV 13.1 % (11.6-14.6); RBC Distribution Width SD 43.5 fl (35.1-43.9); Red Blood Count 4.67 M/mm3 (4.6-6.2); White Blood Count 6.3 K/mm3 (4.4-11.0)
[2021-02-07 18:26] LABS: AST(SGOT) 13 U/L (15-37); Alanine Aminotransfer ALT/SGPT 25 U/L (16-61); Albumin, Serum 3.5 g/dL (3.2-5.0); Alkaline Phosphatase 75 U/L (45-117); Bilirubin, Direct 0.15 mg/dL (0.00-0.30); Globulin 4.4 g/dL (2.2-4.2); Protein, Total 7.9 g/dL (6.4-8.2)
[2021-02-10 20:08] LABS: QNTFERON TB Mitogen Value > 10.00 IU/mL (.); QNTFERON TB Nil Value 0.05 IU/mL (.); QNTFERON TB1+ Ag Value 0.04 IU/mL (.); QNTFERON TB2+ Ag Value 0.03 IU/mL (.)
[2021-02-10 21:14] LABS: QNTIFERON TB Positive Criteria Negative (Negative)
== END ==
PROVIDERS: PCP Family Medicine; Referring Provider Dermatology; Visit Provider Dermatology
DX: Z79.899 Other long term (current) drug therapy (principal); L40.0 Psoriasis vulgaris; L40.3 Pustulosis palmaris et plantaris
CPT/HCPCS: 36415; 80076; 85025; 86480

== ENCOUNTER 2021-02-22 13:34 | Emergency (ER) | payer OTHER, SELFPAY ==
[2021-02-22 13:35] VITALS: BP 166/97; PULSE 109; RESP 18; TEMP 37.3; O2SAT 100; BMI 25.0
[2021-02-22] MEDS: Diphth,Pertuss(Acell),Tet Vac 0.5 ML Vial IM (14:38)
--- NOTE | 2021-02-22 14:46 | EDS_ITS ---
HPI History of Present Illness HPI Narrative: Patient presents with laceration to his right thumb that occurred today. Patient states he got it caught between his vehicle and the trailer. Patient states that his pain is dull and mild. Patient states it is worse whenever he bends his thumb. Patient denies any paresthesias or weakness. Patient does not remember his last tetanus shot. Patient states the bleeding stopped after several minutes of pressure. Patient denies any other injuries. Chief Complaint: Laceration Informant: patient Occured/Mechanism Mechanism/Context: Yes crush Onset/Context/Timing Onset: Today Context: Sudden Onset Quality of Pain: Dull Worsened by: Movement Relieved by: Nothing Associated Symptoms Associated Symptoms: Negative for Parasthesia, Weakness and Loss of Funtion PFSH [facility] Medical History Former smoker GERD (gastroesophageal reflux disease) Hamstring tear Hypertension Pulmonary embolism Home Medications Tremfya 100 mg SQ UD 07/02/19 [History Last Taken 07/26/19] multivitamin with minerals 1 tab PO DAILY 07/02/19 [History Last Taken 07/31/19] omega-3 fatty acids 1,000 mg PO DAILY 07/02/19 [History Last Taken 07/31/19] omeprazole 20 mg PO DAILY 07/31/19 [History Last Taken 07/31/19] Xarelto DVT-PE Treat 30d Start See Rx Instructions .ROUTE .COMPLEX #51 tab 12/07/20 [Rx Last Taken Unknown] aspirin 81 mg PO BID 12/07/20 [History Last Taken Unknown] cephalexin 500 mg PO Q6 #28 capsule 02/22/21 [Rx Last Taken Unknown] Allergy/AdvReac Type Severity Reaction Status Date / Time prednisone AdvReac Chest Verified 02/22/21 13:38 tightness Family History (Updated 12/08/20 @ 05:[address] Rickey Gilbert MD) Mother Fibromyalgia Hypertension Surgical History H/O knee surgery Hx of carpal tunnel repair Social History Smoking Status: Former smoker substance use type: does not use ROS ROS ED Constitutional Constitutional ED: Denies chills or fever(s) Eyes Eyes: Denies blurry vision or change in vision ENT ENT ED: Denies rhinorrhea or sore throat Cardiovascular Cardiovascular: Denies chest pain or palpitations Respiratory/Chest Respiratory/Chest: Denies cough or dyspnea Gastrointestinal Gastrointestinal: Denies nausea or vomiting Genitourinary Genitourinary ED: Denies dysuria or hematuria Musculoskeletal Musculoskeletal: Denies back pain or neck pain Integumentary Denies abscess or rash Neurologic Neurologic: Denies headache(s) or weakness Allergic/Immunologic Allergic/Immunologic ED: Denies mouth swelling or urticaria EXAM Physical Exam Const Vital Signs: 02/22/21 13:35 Temperature 99.1 F Temperature Source Temporal Pulse Rate 109 H Respiratory Rate 18 Blood Pressure 166/97 H Blood Pressure Mean 120 Pulse Ox 100 Oxygen Delivery Method Room Air Positive well nourished and well developed General Appearance ED: well developed HEENT Reports moist mucous membranes Neck full ROM Extremity full ROM Extremity Narrative: There is a 3.5 cm full-thickness linear laceration over the palmar aspect of the proximal phalanx of the right thumb. There is moderate gapping of the wound margins. There is no active bleeding. There are no foreign bodies noted. Strength is 5/5 in flexion extension of the IP and MP joints of the right thumb. There are no sensory deficits noted. Capillary refill is less than 2 seconds in all digits. Neuro oriented x3, CN's II-XII intact bilaterally, moves all extremities, no focal motor deficits and no sensory deficits noted Sensorium / Orientation: alert Psych mental status grossly normal MDM MDM MDM Narrative Medical decision making narrative: Patient was given a tetanus booster. The wound was cleaned and irrigated with copious amounts of normal saline. The wound was anesthetized with 1% plain lidocaine via digital block. The wound was closed with 5 simple interrupted #4-0 nylon sutures under sterile technique. Good hemostasis was achieved. Patient tolerated the procedure well. Bacitracin dressing was applied. Patient was given a dose of Keflex here. Patient was given a prescription for Keflex. Patient was instructed to keep the hand elevated. Patient was instructed to follow-up with his primary care physician in 7 days for wound recheck and suture removal. Patient understood and was agreeable with the plan. All questions were answered. Procedures Lacerations Right thumb: Depth: Sub Q Shape: Linear Prep: Sterile Conditions and Chlorhexadine Laceration repair: Digital block and Lidocaine Irrigated (ml): 60 Number of Sutures/Elie: 5 Suture Information: Ethilon and 4-0 Discharge Plan Triage Chief Complaint: Laceration ED Provider: John Youssef Dx/Rx/DC Orders Clinical Impression: Laceration of right thumb Instructions: ED Laceration, Hand: All Closures Prescriptions: New cephalexin [cephalexin] 500 MG capsule 500 mg PO Q6 Qty: 28 RF: 0 No Action Tremfya 100 MG/ML syringe 100 mg SQ UD RF: 0 omega-3 fatty acids 1,000 MG capsule 1,000 mg PO DAILY RF: 0 multivitamin with minerals 1 EACH tablet 1 tab PO DAILY RF: 0 omeprazole 20 MG tablet,delayed release (DR/EC) 20 mg PO DAILY RF: 0 aspirin 81 mg Tablet 81 mg PO BID RF: 0 Xarelto DVT-PE Treat 30d Start 15 mg (42)- 20 mg (9) tablets,dose pack See Rx Instructions .ROUTE .COMPLEX Qty: 51 RF: 0 Primary Care Provider: John Jones Referrals: John Jones MD [Primary Care Provider] - 7 Days for suture removal Disposition Disposition: Home, Self Care
[2021-02-22] MEDS: Lidocaine 1% (20 ml mdv) 20 ML Vial INFILT (15:00)
[2021-02-22] MEDS: Cephalexin 500 MG Capsule PO (16:36)
[2021-02-22 16:40] VITALS: RESP 16
== END 2021-02-22 16:41 | disposition home or self-care (01) ==
PROVIDERS: Emergency Provider Emergency Medicine; PCP Family Medicine
DX: S61.011A Laceration without foreign body of right thumb without damage to nail, initial encounter (principal); X58.XXXA Exposure to other specified factors, initial encounter; Z87.891 Personal history of nicotine dependence; Z79.899 Other long term (current) drug therapy
CPT/HCPCS: 12002; 90471; 90715; 99285

== ENCOUNTER → 2021-02-25 16:06 | Outpatient (CLI) | payer OTHER, SELFPAY | PROVIDERS: PCP Family Medicine; Referring Provider Family Medicine; Visit Provider Family Medicine | DX: Z01.84 Encounter for antibody response examination (principal) | CPT/HCPCS: 36415; 86769 ==

== ENCOUNTER → 2022-02-09 | Outpatient (CLI) | payer BC, SELFPAY ==
[2022-02-09 12:20] LABS: Absolute Lymphocyte Count 1.48 X10^3/uL (0.83-4.51); Absolute Neutrophil Count 3.5 X10^3/uL (2.0-7.7); Basophil# 0.03 X10^3/uL; Basophil% 0.5 % (0-1); Eosinophil# 0.12 X10^3/uL; Eosinophils% 2.1 % (0-5); Hematocrit 43.2 % (40-54); Hemoglobin 14.7 g/dL (13.0-16.5); Lymphocyte # 1.48 X10^3/ul (0.83-4.51); Lymphocyte % 25.3 % (19-41); Mean Corpuscular Hgb 30.6 pg (27.0-32.0); Mean Corpuscular Volume 89.8 fL (80-94); Mean Platelet Vol. 9.2 fl (6.2-12.0); Monocyte# 0.68 X10^3/uL; Monocyte% 11.6 % (0-10); NRBC Flagged by Analyzer 0 % (0-5); Neutrophil # 3.51 X10^3/uL (2.7-7.7); Neutrophil % 60.2 % (47-70); Platelet Count 445 K/mm3 (150-450); RBC Distribution Width CV 12.2 % (11.6-14.6); RBC Distribution Width SD 40.2 fl (35.1-43.9); Red Blood Count 4.81 M/mm3 (4.6-6.2); White Blood Count 5.8 K/mm3 (4.4-11.0)
[2022-02-09 12:53] LABS: AST(SGOT) 17 U/L (15-37); Alanine Aminotransfer ALT/SGPT 25 U/L (16-61); Albumin, Serum 3.4 g/dL (3.2-5.0); Alkaline Phosphatase 67 U/L (45-117); Bilirubin, Direct 0.11 mg/dL (0.00-0.30); Globulin 4.4 g/dL (2.2-4.2); Protein, Total 7.8 g/dL (6.4-8.2)
[2022-02-11 21:07] LABS: QNTFERON TB Mitogen Value > 10.00 IU/mL (.); QNTFERON TB Nil Value 0.01 IU/mL (.); QNTFERON TB1+ Ag Value 0.01 IU/mL (.); QNTFERON TB2+ Ag Value 0 IU/mL (.)
[2022-02-12 10:49] LABS: QNTIFERON TB Positive Criteria Negative (Negative)
== END | disposition home or self-care (01) ==
LOC: MTLAB 10:54
PROVIDERS: PCP Family Medicine; Referring Provider Dermatology; Visit Provider Dermatology
DX: L40.0 Psoriasis vulgaris (principal); L40.3 Pustulosis palmaris et plantaris; Z79.899 Other long term (current) drug therapy
CPT/HCPCS: 36415; 80076; 85025; 86480

== ENCOUNTER 2022-02-17 05:17 | Day surgery (SDC) | payer BC, SELFPAY ==
[2022-02-17] VITALS (10 sets, daily range): BP systolic 118–162; BP diastolic 71–92; PULSE 78–102; RESP 12–18; TEMP 36.6–37.2; O2SAT 84–100; BMI 24.5
[2022-02-17] MEDS: Lactated Ringers 1,000 ML 15 ML IV (05:55)
--- NOTE | 2022-02-17 06:17 | PCM.HP.STD ---
[facility] - General General Date of Service: 02/17/22 Chief Complaint: Screening for intestinal cancer [facility] Narrative MAKAYLA PULIDO, is a 61 M who presents presents for screening colonoscopy today. He has not had a previous one. He has no current symptoms. No abdominal pain or bright red blood per rectum or melena. No family history of colon cancer or colon polyps. He states he otherwise enjoys good health. [facility] Medical History (Updated 02/15/22 @ 12:07 by Patricia Dewey) Alcohol use Back pain Bilateral pulmonary embolism Former smoker Gastric reflux GERD (gastroesophageal reflux disease) Hamstring tear Hypertension Leg cramps Pulmonary embolism Restless legs Shortness of breath Tachycardia Wears dentures Wears glasses Home Medications guselkumab 100 mg/mL subcutaneous syringe (Tremfya) 100 mg SQ .[id number] 07/02/19 [History Last Taken 07/26/19] multivitamin with minerals 1 tab PO DAILY 07/02/19 [History Last Taken 07/31/19] cholecalciferol (vitamin D3) 25 mcg (1,000 unit) capsule 25 mcg PO DAILY 12/20/21 [History Last Taken Unknown] green tea leaf extract 250 mg capsule (Green Tea) 250 mg PO DAILY 02/15/22 [History Last Taken Unknown] omega-3 fatty acids 1,000 mg PO DAILY 02/15/22 [History Last Taken Unknown] omeprazole 20 mg tablet,delayed release 20 mg PO DAILY 02/15/22 [History Last Taken Unknown] Allergy/AdvReac Type Severity Reaction Status Date / Time prednisone AdvReac Chest Verified 02/17/22 05:44 tightness tramadol Allergy Intermediate Other Uncoded 02/17/22 05:44 Family History (Updated 12/08/20 @ 05:[address] Rickey Gilbert MD) Mother Fibromyalgia Hypertension Surgical History (Updated 02/15/22 @ 12:07 by Patricia Dewey) Hx of carpal tunnel repair Hx of surgical procedure Social History Smoking Status: Former smoker substance use type: does not use ROS Constitutional Constitutional: Reports systems reviewed and no addt'l complaints, except as documented Cardiovascular Cardiovascular: Denies chest pain Respiratory/Chest Respiratory/Chest: Denies shortness of breath at rest Gastrointestinal Gastrointestinal: Denies abdominal pain, change in bowel habits, hematochezia or melena Vital Signs Vital Signs Vital Signs: 02/17/22 05:46 02/17/22 05:47 Temperature 97.8 F Temperature Source Temporal Pulse Rate 78 Respiratory Rate 18 Respiratory Pattern Normal Blood Pressure 123/81 H Blood Pressure Mean 95 Blood Pressure Source Monitor Blood Pressure Position Semi-Fowlers Blood Pressure Location Left Arm Pulse Ox 100 Oxygen Delivery Method Room Air Weight Weight: 186 lb 6.4 oz Body Mass Index (BMI) 24.5 Physical Exam Const alert, oriented x3 and no apparent distress General Appearance: cooperative and comfortable Eyes General Eye: normal appearance of both eyes Neck General: normal visual inspection Chest inspection of chest normal Resp Effort and Inspection: able to speak in complete sentences and symmetric chest movement Auscultation: clear to auscultation bilaterally Cardio regular rate and regular rhythm GI soft to palpation, non-tender and non-distended Extremity no calf tenderness Neuro oriented x3 Psych thought process normal Assessment & Plan Assessment/Plan (1) Encounter for screening for malignant neoplasm of colon: PLAN: Plan to proceed with a screening colonoscopy with possible biopsy or polypectomy as indicated. He is aware of the technique, benefit, risk, alternatives. He has had an opportunity to ask and have questions answered. He presents via open access today. We will proceed as noted. Stone Rosa M.D., F.A.C.S.
[2022-02-17] MEDS: Midazolam 5 MG/ML Syringe (06:31)
--- NOTE | 2022-02-17 06:54 | OP.CCLET_ITS ---
02/17/2022 John Jones [address] [place] [address] Re : Colonoscopy procedure for Delta Brown Dear Dr. Jones This procedure was performed on Thursday, February 17, 2022. My impressions and recommendations are as follows: Impressions : - Diverticulosis in the sigmoid colon and in the descending colon. - The examination was otherwise normal. - No specimens collected. Recommendations : - Discharge patient to home. - Resume previous diet. - Continue present medications. - Repeat colonoscopy in 10 years for screening purposes. My findings are described in the full procedure note, which is enclosed. If I can be of further assistance, please feel free to contact me at Doctor phone number(s): Work: . Sincerely, Stone Rosa MD 02/17/2022 6:48:45 AM This report has been signed electronically.
--- NOTE | 2022-02-17 06:54 | OP.COLON_ITS ---
Patient Name: Delta Brown Procedure Date: 02/17/2022 6:02 AM Date of : 1960 Age: 61 Procedure: Colonoscopy Indications: Screening for colorectal malignant neoplasm Providers: Stone Rosa MD Referring MD: Stone Rosa MD Medicines: Midazolam 4.5 mg IV, Meperidine 100 mg IV Patient Profile: Last Colonoscopy: none. The patient's first colonoscopy is today. Complications: No immediate complications. Procedure: Pre-Anesthesia Assessment: - Prior to the procedure, a History and Physical was performed, and patient medications and allergies were reviewed. The patient's tolerance of previous anesthesia was also reviewed. The risks and benefits of the procedure and the sedation options and risks were discussed with the patient. All questions were answered, and informed consent was obtained. Prior Anticoagulants: The patient has taken no previous anticoagulant or antiplatelet agents. ASA Grade Assessment: II - A patient with mild systemic disease. After reviewing the risks and benefits, the patient was deemed in satisfactory condition to undergo the procedure. After I obtained informed consent, the scope was passed under direct vision. Throughout the procedure, the patient's blood pressure, pulse, and oxygen saturations were monitored continuously. The adult colonoscope was introduced through the anus and advanced to the cecum, identified by appendiceal orifice and ileocecal valve. The colonoscopy was performed without difficulty. The patient tolerated the procedure well. The quality of the bowel preparation was good. The ileocecal valve and the appendiceal orifice were photographed. Moderate Sedation: Moderate (conscious) sedation was personally administered by the endoscopist. The following parameters were monitored: oxygen saturation, heart rate, blood pressure, and response to care. Total physician intraservice time was 15 minutes. Scope In: 6:34:21 AM Scope Out: 6:45:22 AM Total Procedure Duration Time 0 hours 11 minutes 1 second Findings: The perianal and digital rectal examinations were normal. Pertinent negatives include normal prostate (size, shape, and consistency). Multiple diverticula were found in the sigmoid colon and descending colon. The exam was otherwise without abnormality. Impression: - Diverticulosis in the sigmoid colon and in the descending colon. - The examination was otherwise normal. - No specimens collected. Recommendation: - Discharge patient to home. - Resume previous diet. - Continue present medications. - Repeat colonoscopy in 10 years for screening purposes. Procedure Code(s): --- Professional --- 61478, Colonoscopy, flexible; diagnostic, including collection of specimen(s) by brushing or washing, when performed (separate procedure) 70682, 59, Moderate sedation services provided by the same physician or other qualified health medical care administrator performing the diagnostic or therapeutic service that the sedation supports, requiring the presence of an independent trained observer to assist in the monitoring of the patient's level of consciousness and physiological status; initial 15 minutes of intraservice time, patient age 5 years or older Diagnosis Code(s): --- Professional --- Z12.11, Encounter for screening for malignant neoplasm of colon K57.30, Diverticulosis of large intestine without perforation or abscess without bleeding CPT copyright 2017 [employer]. All rights reserved. The codes documented in this report are preliminary and upon medical biller/coder review may be revised to meet current compliance requirements. Stone Rosa MD 02/17/2022 6:48:45 AM This report has been signed electronically. Number of Addenda: 0 Note Initiated On: 02/17/2022 6:02 AM
== END 2022-02-17 07:47 | disposition home or self-care (01) ==
LOC: EN 05:18 → AC 05:19
PROVIDERS: PCP Family Medicine; Referring Provider Family Medicine; Visit Provider Surgery
PROC: 0DJD8ZZ Inspection of Lower Intestinal Tract, Via Natural or Artificial Opening Endoscopic (ICD-10-PCS; CPT 45378; principal; 2022-02-17 06:25)
DX: Z12.11 Encounter for screening for malignant neoplasm of colon (principal); K57.30 Diverticulosis of large intestine without perforation or abscess without bleeding; K21.9 Gastro-esophageal reflux disease without esophagitis; Z79.899 Other long term (current) drug therapy; Z87.891 Personal history of nicotine dependence
CPT/HCPCS: 45378; 99152; 99153; J7120

== ENCOUNTER → 2023-02-12 | Outpatient (CLI) | payer BC, SELFPAY ==
[2023-02-12 10:33] LABS: Absolute Lymphocyte Count 1.62 X10^3/uL (0.83-4.51); Absolute Neutrophil Count 4.3 X10^3/uL (2.0-7.7); Basophil# 0.04 X10^3/uL; Basophil% 0.6 % (0-1); Eosinophil# 0.11 X10^3/uL; Eosinophils% 1.7 % (0-5); Hematocrit 44.7 % (40-54); Hemoglobin 15.2 g/dL (13.0-16.5); Lymphocyte # 1.62 X10^3/ul (0.83-4.51); Lymphocyte % 24.4 % (19-41); Mean Corpuscular Hgb 30.5 pg (27.0-32.0); Mean Corpuscular Volume 89.8 fL (80-94); Mean Platelet Vol. 8.9 fl (6.2-12.0); Monocyte# 0.52 X10^3/uL; Monocyte% 7.8 % (0-10); NRBC Flagged by Analyzer 0 % (0-5); Neutrophil # 4.31 X10^3/uL (2.7-7.7); Platelet Count 424 K/mm3 (150-450); RBC Distribution Width CV 11.9 % (11.6-14.6); RBC Distribution Width SD 38.8 fl (35.1-43.9); Red Blood Count 4.98 M/mm3 (4.6-6.2); White Blood Count 6.6 K/mm3 (4.4-11.0)
[2023-02-12 11:30] LABS: AST(SGOT) 19 U/L (15-37); Alanine Aminotransfer ALT/SGPT 31 U/L (16-61); Albumin, Serum 3.5 g/dL (3.2-5.0); Alkaline Phosphatase 74 U/L (45-117); Bilirubin, Direct 0.18 mg/dL (0.00-0.30); Globulin 4.8 g/dL (2.2-4.2); Protein, Total 8.3 g/dL (6.4-8.2)
[2023-02-15 14:09] LABS: QNTFERON TB Mitogen Value > 10.00 IU/mL (.); QNTFERON TB Nil Value 0.05 IU/mL (.); QNTFERON TB1+ Ag Value 0.07 IU/mL (.); QNTFERON TB2+ Ag Value 0.05 IU/mL (.); QNTIFERON TB Positive Criteria Negative (Negative)
== END | disposition home or self-care (01) ==
PROVIDERS: PCP Family Medicine; Referring Provider Dermatology; Visit Provider Dermatology
DX: L40.0 Psoriasis vulgaris (principal); L40.3 Pustulosis palmaris et plantaris; Z79.899 Other long term (current) drug therapy
CPT/HCPCS: 36415; 80076; 85025; 86480

== ENCOUNTER → 2024-02-13 | Outpatient (CLI) | payer BC, SELFPAY ==
[2024-02-13 10:14] LABS: Absolute Lymphocyte Count 1.47 X10^3/uL (0.83-4.51); Basophil# 0.04 X10^3/uL; Basophil% 0.8 % (0-1); Eosinophil# 0.11 X10^3/uL; Eosinophils% 2.1 % (0-5); Hematocrit 44.2 % (40-54); Hemoglobin 14.9 g/dL (13.0-16.5); Lymphocyte # 1.47 X10^3/ul (0.83-4.51); Lymphocyte % 28.3 % (19-41); Mean Corp Hgb Conc 33.7 g/dL (32-36); Mean Corpuscular Hgb 30.2 pg (27.0-32.0); Mean Corpuscular Volume 89.5 fL (80-94); Mean Platelet Vol. 9.1 fl (6.2-12.0); Monocyte# 0.59 X10^3/uL; Monocyte% 11.4 % (0-10); NRBC Flagged by Analyzer 0 % (0-5); Neutrophil # 2.96 X10^3/uL (2.7-7.7); Platelet Count 363 K/mm3 (150-450); RBC Distribution Width SD 39.3 fl (35.1-43.9); Red Blood Count 4.94 M/mm3 (4.6-6.2); White Blood Count 5.2 K/mm3 (4.4-11.0)
[2024-02-13 10:31] LABS: AST(SGOT) 17 U/L (15-37); Alanine Aminotransfer ALT/SGPT 26 U/L (16-61); Albumin, Serum 3.5 g/dL (3.2-5.0); Alkaline Phosphatase 72 U/L (45-117); Bilirubin, Direct 0.19 mg/dL (0.00-0.30); Globulin 4.1 g/dL (2.2-4.2); Protein, Total 7.6 g/dL (6.4-8.2)
[2024-02-15 21:07] LABS: QNTFERON TB Mitogen Value > 10.00 IU/mL (.); QNTFERON TB Nil Value 0.01 IU/mL (.); QNTFERON TB1+ Ag Value 0.01 IU/mL (.); QNTFERON TB2+ Ag Value 0.03 IU/mL (.); QNTIFERON TB Positive Criteria Negative (Negative)
== END | disposition home or self-care (01) ==
LOC: MTLAB 08:17
PROVIDERS: PCP Family Medicine; Referring Provider Dermatology; Visit Provider Dermatology
DX: L40.0 Psoriasis vulgaris (principal); L40.3 Pustulosis palmaris et plantaris; Z79.899 Other long term (current) drug therapy
CPT/HCPCS: 36415; 80076; 85025; 86480

== ENCOUNTER 2024-04-27 12:50 | Emergency (ER) | payer BC, SELFPAY ==
[2024-04-27 12:51] VITALS: BP 146/107; PULSE 106; RESP 16; TEMP 37.1; O2SAT 96; BMI 26.3
--- NOTE | 2024-04-27 13:23 | EDS_ITS ---
HPI History of Present Illness Chief Complaint: Cellulitis Informant: patient Onset/Context/Timing Onset: Yesterday Context: Gradual Onset Timing: Continuous Quality: Aching, throbbing Location: Right hand Worsened by: Nothing Relieved by: Nothing Narrative Narrative: Patient presents with redness and swelling to his right hand that he noticed yesterday. Patient states it has gotten worse today. Patient thinks he may have been bitten by an insect 2 days ago. Patient denies any fevers or chills. Patient denies any discharge or drainage. Patient describes his pain as aching and throbbing. Patient states it is mainly over the dorsal aspect of the right hand over the first and second metacarpals. Patient denies any direct trauma or injury. [facility] Medical History Wears dentures Wears glasses Alcohol use Restless legs Back pain Gastric reflux Leg cramps Pulmonary embolism Bilateral pulmonary embolism Hamstring tear GERD (gastroesophageal reflux disease) Former smoker Hypertension Tachycardia Shortness of breath Home Medications ?Medication ?Instructions ?Recorded ?Last Taken ?Type guselkumab 100 mg/mL subcutaneous 100 mg SQ .[id number] 07/02/19 07/26/19 History syringe (Tremfya) multivitamin with minerals 1 tab PO DAILY 07/02/19 07/31/19 History cholecalciferol (vitamin D3) 25 25 mcg PO DAILY 12/20/21 Unknown History mcg (1,000 unit) capsule green tea leaf extract 250 mg 250 mg PO DAILY 02/15/22 Unknown History capsule (Green Tea) omega-3 fatty acids 1,000 mg PO DAILY 02/15/22 Unknown History omeprazole 20 mg tablet,delayed 20 mg PO DAILY 02/15/22 Unknown History release cephalexin 500 mg capsule 500 mg PO Q6 #40 CAPSULES 04/27/24 Unknown Rx Allergy/AdvReac Type Severity Reaction Status Date / Time tramadol Allergy NEEDS Verified 04/27/24 12:51 FOLLOW-UP prednisone AdvReac Chest Verified 04/27/24 12:51 tightness Family History (Updated 12/08/20 @ 05:[address] Rickey Gilbert MD) Mother Fibromyalgia Hypertension Surgical History Hx of surgical procedure Hx of carpal tunnel repair Social History (Updated 04/27/24 @ 13:[address] John Youssef, DO) Smoking Status: Former smoker alcohol intake: current alcohol intake frequency: a few times a month substance use type: does not use ROS ROS ED Constitutional Constitutional ED: Denies chills or fever(s) Eyes Eyes: Denies blurry vision or change in vision ENT ENT ED: Denies rhinorrhea or sore throat Cardiovascular Cardiovascular: Denies chest pain or palpitations Respiratory/Chest Respiratory/Chest: Denies cough or dyspnea Gastrointestinal Gastrointestinal: Denies nausea or vomiting Genitourinary Genitourinary ED: Denies dysuria or hematuria Musculoskeletal Musculoskeletal: Denies back pain or neck pain Integumentary Reports rash; Denies abscess Neurologic Neurologic: Denies headache(s) or weakness Allergic/Immunologic Allergic/Immunologic ED: Denies mouth swelling or urticaria EXAM Physical Exam Const Vital Signs: 04/27/24 12:51 Temperature 98.7 F Temperature Source Oral Pulse Rate 106 H Respiratory Rate 16 Blood Pressure 146/107 H Blood Pressure Mean 120 Pulse Ox 96 Oxygen Delivery Method Room Air Positive well nourished and well developed General Appearance ED: well developed and NAD HEENT Reports moist mucous membranes Neck supple and no JVD Extremity Extremity Narrative: There is mild erythema and warmth over the dorsal aspect of the right hand. There is no active discharge or drainage. There is no fluctuance. There is no evidence of any abscess. Strength is 5/5 in the radial, median, and ulnar areas. Sensation was intact to light touch in the radial, median, and ulnar areas. Range of motion of the right wrist was limited secondary to pain. There is no effusion. Radial pulses are equal bilaterally. Neuro oriented x3, CN's II-XII intact bilaterally and no sensory deficits noted Sensorium / Orientation: alert Motor Exam: strength 5/5 throughout Psych mental status grossly normal MDM MDM MDM Narrative Medical decision making narrative: Patient was advised that this is most likely localized cellulitis to his hand. There is no evidence of any abscess or indication for incision and drainage. Patient was given a dose of Keflex here. Patient was given a prescription for Keflex. Patient was instructed to follow-up with his primary care physician in 5 to 7 days. Patient was instructed return if worse in any way. Patient understood and was agreeable with the plan. All questions were answered. Discharge Plan Triage Chief Complaint: Cellulitis Other Complaint: Upper Extremity Injury ED Provider: John Youssef Dx/Rx/DC Orders Clinical Impression: Cellulitis of right hand, Elevated blood pressure reading Instructions: ED Cellulitis Prescriptions: New cephalexin 500 mg capsule 500 mg PO Q6 Qty: 40 0RF No Action cholecalciferol (vitamin D3) 25 mcg (1,000 unit) capsule 25 mcg PO DAILY Tremfya 100 MG/ML syringe 100 mg SQ .[id number] Patient Comments: INJECT 100MG UNDER THE SKIN AT WEEK 4, AND EVERY 8 WEEKS THEREAFTER Rx Instructions: injection every 6weeks multivitamin with minerals 1 EACH tablet 1 tab PO DAILY green tea leaf extract [Green Tea] 250 mg Capsule 250 mg PO DAILY Roland 3 Capsule 1,000 mg PO DAILY omeprazole 20 mg Tablet,Delayed Release (Dr/Ec) 20 mg PO DAILY Primary Care Provider: John Jones Referrals: John Jones MD [Primary Care Provider] - 5-7 Days Print Language: Hungarian Disposition Disposition: Home, Self Care
[2024-04-27] MEDS: Cephalexin 500 MG Capsule PO (13:49)
== END 2024-04-27 13:52 | disposition home or self-care (01) ==
PROVIDERS: Emergency Provider Emergency Medicine; PCP Family Medicine; Visit Provider Emergency Medicine
DX: L03.113 Cellulitis of right upper limb (principal); R03.0 Elevated blood-pressure reading, without diagnosis of hypertension; Z87.891 Personal history of nicotine dependence
CPT/HCPCS: 99283

== ENCOUNTER → 2025-02-18 | Outpatient (CLI) | payer BC, SELFPAY ==
[2025-02-18 10:46] LABS: Hematocrit 44.3 % (40-54); Hemoglobin 15.4 g/dL (13.0-16.5); Immature Granulocytes Count 0.030 X10^3/uL (0.0-0.0); Mean Corp Hgb Conc 34.8 g/dL (32-36); Mean Corpuscular Volume 87.4 fL (80-94); Mean Platelet Vol. 8.9 fl (6.2-12.0); NRBC Flagged by Analyzer 0 % (0-5); Platelet Count 417 K/mm3 (150-450); RBC Distribution Width CV 12.1 % (11.6-14.6); RBC Distribution Width SD 38.9 fl (35.1-43.9); Red Blood Count 5.07 M/mm3 (4.6-6.2); White Blood Count 5.5 K/mm3 (4.4-11.0)
[2025-02-18 10:59] LABS: AST(SGOT) 22 U/L (<=37); Alanine Aminotransfer ALT/SGPT 21 U/L (<=46); Albumin, Serum 4.2 g/dL (3.4-4.8); Alkaline Phosphatase 70 U/L (40-129); Bilirubin, Direct 0.23 mg/dL (0.00-0.30); Globulin 3.3 g/dL (2.2-4.2)
[2025-02-21 05:07] LABS: QNTFERON TB Mitogen Value > 10.00 IU/mL (.); QNTFERON TB Nil Value 0.05 IU/mL (.); QNTFERON TB1+ Ag Value 0.06 IU/mL (.); QNTFERON TB2+ Ag Value 0.06 IU/mL (.); QNTIFERON TB Positive Criteria Negative (Negative)
== END | disposition home or self-care (01) ==
LOC: MTLAB 08:22
PROVIDERS: PCP Family Medicine; Referring Provider Dermatology; Visit Provider Dermatology
DX: Z79.899 Other long term (current) drug therapy (principal)
CPT/HCPCS: 36415; 80076; 85025; 86480